=== PATIENT | female | born 1990 | race Hispanic/Latino ===

== ENCOUNTER 2022-10-05 02:19 | Emergency (ER) | payer OTHER ==
--- OUTSIDE RECORDS SUMMARY | 2022-10-05 02:25 | XMS REPORT | Continuity of Care Document ---
:1990 Author Organization [facility] t Address [address] [address] [place] [address] Care Team Providers Name Role Phone Salvador Joseph Attending Clinician Unavailable DANIEL Attending Clinician Unavailable Mehdi DIETRICH, Halle Garcia Attending Clinician Unavailable Jordan JOSÉPAmanda Attending Clinician [phone] Vivek DIETRICH, Sarah Roman Attending Clinician Unavailable Doctor Unassigned, [place] Attending Clinician Unavailable Jonnie RUSH, Ciera Baez Attending Clinician Giuliano BROWN, Yahir Parada Attending Clinician Faculty, [facility] Attending Clinician Unavailable Dav BROWN, Gris Gurrola Attending Clinician Allison Whitaker MD Attending Clinician Mali Sanchez MD Attending Clinician DANIEL Admitting Clinician Unavailable Giuliano BROWN, Yahir Parada Admitting Clinician Payers Payer Name Policy Type Policy Number Effective Date Expiration Date [facility] [id number] CHOICE (MEDICAID REPLACEMENT - HMO) Problems Condition Condition Condition Status Onset Resolution Last Treating Co mments Source Name Details Category Date Date Treatment Clinician Date Anxiety Anxiety Problem Active [place] [facility] Chronic Chronic Problem Active [place] depression Depression 4-11 da [facility] 36 weeks 36 weeks Disease Active Unive rs gestation gestation 8-13 ity of of of 00:00: [place] 00 [facility] Branch 17 weeks 17 weeks Disease Active Unive rs gestation gestation 4-02 ity of of of 00:00: [place] 00 [facility] Nausea and Nausea and Disease Active U nivers vomiting vomiting 2-19 ity of during during 00:00: [place] 00 [facility] History of History of Disease Active U nivers 2-15 [place] premature premature [place] rupture of rupture of 00 Me dical membranes membranes Bran ch (PPROM) (PPROM) Abnormal Abnormal Disease Active Unive rs maternal maternal 1-18 ity of glucose glucose 00:00: [place] tolerance, tolerance, 00 Me dical antepartum antepartum Br anch Previous Previous Disease Active Unive rs 1-17 ity of delivery delivery 00:00: [place] affecting affecting 00 [facility] , , Br anch antepartum antepartum Desires Desires Disease Active Univers 1-17 ity of (vaginal (vaginal 00:00: [place] 00 Medical after after Branch ) ) trial trial Depression Depression Disease Active U nivers , , 5-04 ity of unspecifie [place] Medical depression depression Br anch type type [id number] Unable to Problem Comm on concentrat Spirit e - [facility] Attention ADD Problem Common deficit (attention Spiri t disorder deficit - [facility] disorder) [facility] [id number] Attention Problem Comm on deficit Spirit hyperactiv - [facility] ity [facility] disorder [facility] (ADHD), Medical combined Center type [id number] BOO Problem Common (generaliz Spirit ed anxiety - [facility] disorder) [facility] [id number] Current Problem Common moderate Spirit episode of - [facility] depressive [facility] disorder Medical without Center prior episode [id number] Primary Problem Common insomnia Spirit - [facility] [id number] Hypertrigl Problem Co mmon yceridemia [facility] Allergies, Adverse Reactions, Alerts This patient has no known allergies or adverse reactions. Social History Social Habit Start Date Stop Date Quantity Comments Source ASSERTION 2018-03-20 [facility] 00:00:00 [facility] History of Tobacco Common Spirit - Use [facility] Sex Assigned At Common Sp sumaya - [facility] Alcohol intake [facility] Alcohol Comment 2016-11-09 2016-11-09 Social Drinker Unive rsity of 00:00:00 00:00:00 [facility] Smoking Status Start Date Stop Date Source Never Smoker Common Spirit - [facility] Former smoker 2018-12-20 00:00:00 2018-12-20 00:00:00 [facility] Medications Ordered Filled Start Stop Current Ordering Indication Dosage Frequency Signature Comments Components Source Medication Medication Date Date Medication? Clinician (SIG) Name Name Mydayis 50 Mydayis 50 No 1{capsu QD Mydayis 50 MG MG 5-05 le_in_t MG 00:00: he_morn 00 ing} Mydayis 50 Mydayis 50 No 1{capsu QD Mydayis 50 MG MG 3-27 le_in_t MG 00:00: he_morn 00 ing} Mydayis 50 Mydayis 50 No 1{capsu QD Mydayis 50 MG MG 2-13 le_in_t MG 00:00: he_morn 00 ing} Mydayis 50 Mydayis 50 2021-04 No 1{capsu QD Mydayis 50 MG MG 2-29 le_in_t MG 00:00: he_morn 00 ing} Mydayis 50 Mydayis 50 2021-04 No 1{capsu QD Mydayis 50 MG MG 2-28 le_in_t MG 00:00: he_morn 00 ing} Mydayis 50 Mydayis 50 2021-04 No 1{capsu QD Mydayis 50 MG MG 1-29 le_in_t MG 00:00: he_morn 00 ing} Mydayis 50 Mydayis 50 2021-04 No 1{capsu QD Mydayis 50 MG MG 1-29 le_in_t MG 00:00: he_morn 00 ing} Mydayis Mydayis 2021-04 No 1{capsu QD Mydayis 37.5 MG 37.5 MG 1-23 le_in_t 37.5 MG 00:00: he_morn 00 ing} Mydayis Mydayis 2021-04 No 1{capsu QD Mydayis 37.5 MG 37.5 MG 1-23 le_in_t 37.5 MG 00:00: he_morn 00 ing} Mydayis Mydayis 2021-04 No 1{capsu QD Mydayis 37.5 MG 37.5 MG 0-24 le_in_t 37.5 MG 00:00: he_morn 00 ing} Mydayis Mydayis 2021-04 No 1{capsu QD Mydayis 37.5 MG 37.5 MG 0-24 le_in_t 37.5 MG 00:00: he_morn 00 ing} Mydayis Mydayis No 1{capsu QD Mydayis 37.5 MG 37.5 MG 9 le_in_t 37.5 MG 00:00: he_morn 00 ing} Mydayis Mydayis No 1{capsu QD Mydayis 37.5 MG 37.5 MG 9 le_in_t 37.5 MG 00:00: he_morn 00 ing} Mydayis 25 Mydayis No 1{capsu QD Mydayis 25 MG MG 8-19 le_in_t MG 00:00: he_morn 00 ing} Mydayis 25 Mydayis No 1{capsu QD Mydayis 25 MG MG 8-19 le_in_t MG 00:00: he_morn 00 ing} Mydayis 25 Mydayis No 1{capsu QD Mydayis 25 MG MG 8-19 le_in_t MG 00:00: he_morn 00 ing} Mydayis 25 Mydayis No 1{capsu QD Mydayis 25 MG MG 8-19 le_in_t MG 00:00: he_morn 00 ing} Mydayis 25 Mydayis 25 No 1{capsu QD Mydayis 25 MG MG 8-19 le_in_t MG 00:00: he_morn 00 ing} Vyvanse 40 Vyvanse 40 2021-0 No 1{capsu QD Vyvanse 40 MG MG 8-08 le_in_t MG 00:00: he_morn 00 ing} Vyvanse 40 Vyvanse 40 2021-0 No 1{capsu QD Vyvanse 40 MG MG 8-08 le_in_t MG 00:00: he_morn 00 ing} Amphetamine Amphetamine 2021-0 No 1{table BID Amphetamin -Dextroamph -Dextroamph 7-15 t} e-Dextroam etamine 20 etamine 20 00:00: phetamine MG MG 00 20 MG Amphetamine Amphetamine 2021-0 No 1{table BID Amphetamin -Dextroamph -Dextroamph 7-15 t} e-Dextroam etamine 20 etamine 20 00:00: phetamine MG MG 00 20 MG Amphetamine Amphetamine 2021-0 No 1{table BID Amphetamin -Dextroamph -Dextroamph 6-17 t} e-Dextroam etamine 20 etamine 20 00:00: phetamine MG MG 00 20 MG Adderall 20 Adderall 20 2021-0 No 1{table BID Adderall MG MG 6-17 t} 20 MG 00:00: 00 Amphetamine Amphetamine 2021-0 No 1{table BID Amphetamin -Dextroamph -Dextroamph 6-17 t} e-Dextroam etamine 20 etamine 20 00:00: phetamine MG MG 00 20 MG Adderall 20 Adderall 20 2-0 No 1{table BID Adderall MG MG 6-17 t} 20 MG 00:00: 00 Adderall 20 Adderall 20 2-0 No 1{table BID Adderall MG MG 6-17 t} 20 MG 00:00: 00 Adderall 20 Adderall 20 2-0 No 1{table BID Adderall MG MG 6-17 t} 20 MG 00:00: 00 Amphetamine Amphetamine 2021-0 No 1{table BID Amphetamin -Dextroamph -Dextroamph 5-20 t} e-Dextroam etamine 20 etamine 20 00:00: phetamine MG MG 00 20 MG Amphetamine Amphetamine 2-0 No 1{table BID Amphetamin -Dextroamph -Dextroamph 5-20 t} e-Dextroam etamine 20 etamine 20 00:00: phetamine MG MG 00 20 MG Amphetamine Amphetamine 2022-0 No 1{table BID Amphetamin -Dextroamph -Dextroamph 5-20 t} e-Dextroam etamine 20 etamine 20 00:00: phetamine MG MG 00 20 MG Amitriptyli Amitriptyli 2021-0 No 1{table QD Amitriptyl ne HCl 25 ne HCl 25 4-21 t_at_be ine HCl 25 MG MG 00:00: dtime} MG 00 Amphetamine Amphetamine 2022-0 No 1{table BID Amphetamin -Dextroamph -Dextroamph 4-21 t} e-Dextroam etamine 10 etamine 10 00:00: phetamine MG MG 00 10 MG Amitriptyli Amitriptyli 2021-0 No 1{table QD Amitriptyl ne HCl 25 ne HCl 25 4-21 t_at_be ine HCl 25 MG MG 00:00: dtime} MG 00 Amphetamine Amphetamine 2-0 No 1{table BID Amphetamin -Dextroamph -Dextroamph 4-21 t} e-Dextroam etamine 10 etamine 10 00:00: phetamine MG MG 00 10 MG Amitriptyli Amitriptyli 2021-0 No 1{table QD Amitriptyl ne HCl 25 ne HCl 25 4-21 t_at_be ine HCl 25 MG MG 00:00: dtime} MG 00 Amphetamine Amphetamine 2-0 No 1{table BID Amphetamin -Dextroamph -Dextroamph 4-21 t} e-Dextroam etamine 10 etamine 10 00:00: phetamine MG MG 00 10 MG Amoxicillin Amoxicillin 2021-0 2022- No 1{table BID Amoxicilli -Pot -Pot 4-18 04-28 t} n-Pot Clavulanate Clavulanate 00:00: 00:00 Clavulanat 875-125 MG 875-125 MG 00 :00 e 875-125 MG Amoxicillin Amoxicillin 2-0 2022- No 1{table BID Amoxicilli -Pot -Pot 4-18 04-28 t} n-Pot Clavulanate Clavulanate 00:00: 00:00 Clavulanat 875-125 MG 875-125 MG 00 :00 e 875-125 MG Amoxicillin Amoxicillin 2021-0 2021- No 1{table BID Amoxicilli -Pot -Pot 07-25 t} n-Pot Clavulanate Clavulanate 00:00: 00:00 Clavulanat 875-125 MG 875-125 MG 00 :00 e 875-125 MG Amoxicillin Amoxicillin 2021-0 2021- No 1{table BID Amoxicilli -Pot -Pot 07-25 t} n-Pot Clavulanate Clavulanate 00:00: 00:00 Clavulanat 875-125 MG 875-125 MG 00 :00 e 875-125 MG Amoxicillin Amoxicillin 2021-0 2021- No 1{table BID Amoxicilli -Pot -Pot 07-25 t} n-Pot Clavulanate Clavulanate 00:00: 00:00 Clavulanat 875-125 MG 875-125 MG 00 :00 e 875-125 MG Amoxicillin Amoxicillin 2021-0 2021- No 1{table BID Amoxicilli -Pot -Pot 07-25 t} n-Pot Clavulanate Clavulanate 00:00: 00:00 Clavulanat 875-125 MG 875-125 MG 00 :00 e 875-125 MG Amoxicillin Amoxicillin 2021-0 2021- No 1{table BID Amoxicilli -Pot -Pot 07-25 t} n-Pot Clavulanate Clavulanate 00:00: 00:00 Clavulanat 875-125 MG 875-125 MG 00 :00 e 875-125 MG methylPREDN methylPREDN 0 2021- No QD methylPRED ISolone 4 ISolone 4 07-25 NISolone 4 MG MG 00:00: 00:00 MG 00 :00 methylPREDN methylPREDN 2021-0 2021- No QD methylPRED ISolone 4 ISolone 4 07-25 NISolone 4 MG MG 00:00: 00:00 MG 00 :00 methylPREDN methylPREDN 2021-0 2021- No QD methylPRED ISolone 4 ISolone 4 07-25 NISolone 4 MG MG 00:00: 00:00 MG 00 :00 methylPREDN methylPREDN 2021-0 2021- No QD methylPRED ISolone 4 ISolone 4 07-25-24 NISolone 4 MG MG 00:00: 00:00 MG 00 :00 methylPREDN methylPREDN 2021-0 2021- No QD methylPRED ISolone 4 ISolone 4 4-24 NISolone 4 MG MG 00:00: 00:00 MG 00 :00 methylPREDN methylPREDN 2021-0 2021- No QD methylPRED ISolone 4 ISolone 4 4-24 NISolone 4 MG MG 00:00: 00:00 MG 00 :00 methylPREDN methylPREDN 2021-0 2021- No QD methylPRED ISolone 4 ISolone 4 07-25 NISolone 4 MG MG 00:00: 00:00 MG 00 :00 escitalopra Yes [id number] 20mg Take 1 Univers m oxalate 9-12 tablet by ity o f (LEXAPRO) 00:00: mouth [place] 20 mg 00 daily. Medical tablet Branch escitalopra Yes [id number] 20mg Take 1 Univers m oxalate 9-12 tablet by ity o f (LEXAPRO) 00:00: mouth [place] 20 mg 00 daily. Medical tablet Branch escitalopra Yes [id number] 10mg Take 1 Univers m oxalate 9-05 tablet by ity o f (LEXAPRO) 00:00: mouth [place] 10 mg 00 daily. Medical tablet Branch escitalopra Yes [id number] 10mg Take 1 Univers m oxalate 9-05 tablet by ity o f (LEXAPRO) 00:00: mouth [place] 10 mg 00 daily. Medical tablet Branch escitalopra 2019- No [id number] 10mg Take 1 Univers m oxalate 9-05 09-12 tablet by ity of (LEXAPRO) 00:00: 00:00 mouth [place] 10 mg 00 :00 daily. Medical tablet Branch ibuprofen Yes [id number] 600mg Take 1 Univers 600 mg 8-23 tablet by ity of tablet 00:00: mouth [place] 00 every 6 Medical (six) Branch hours as needed for Pain (scale 1-3) or Pain (scale 4-6) (Pain). Take with food or milk. ibuprofen Yes [id number] 600mg Take 1 Univers 600 mg 8-23 tablet by ity of tablet 00:00: mouth [place] 00 every 6 Medical (six) Branch hours as needed for Pain (scale 1-3) or Pain (scale 4-6) (Pain). Take with food or milk. ibuprofen Yes [id number] 600mg Take 1 Univers 600 mg 8-23 tablet by ity of tablet 00:00: mouth [place] 00 every 6 Medical (six) Branch hours as needed for Pain (scale 1-3) or Pain (scale 4-6) (Pain). Take with food or milk. ibuprofen Yes [id number] 600mg Take 1 Univers 600 mg 8-23 tablet by ity of tablet 00:00: mouth [place] 00 every 6 Medical (six) Branch hours as needed for Pain (scale 1-3) or Pain (scale 4-6) (Pain). Take with food or milk. ibuprofen Yes [id number] 600mg Take 1 Univers 600 mg 8-23 tablet by ity of tablet 00:00: mouth [place] 00 every 6 Medical (six) Branch hours as needed for Pain (scale 1-3) or Pain (scale 4-6) (Pain). Take with food or milk. ibuprofen Yes [id number] 600mg Take 1 Univers 600 mg 8-23 tablet by ity of tablet 00:00: mouth [place] 00 every 6 Medical (six) Branch hours as needed for Pain (scale 1-3) or Pain (scale 4-6) (Pain). Take with food or milk. bacitracin 2019- No 1{each} Topical Univers 500 unit/g 11-21 (Apply To ity of ointment 04:30: 00:59 [place]ffected [place] pkt 00 :00 Areas), Medical QID, 4 Branch doses, First dose on Sun11/20/18 at 2330, Last dose on Sun11/21/18 at 1600, Routine human 2018- Yes .5mL 0.5 mL, Univers papillomav 11-20 Intramuscu ity of vac,9-cherie(P 11:32: lar, [place] F) 48 ONCE-PRIOR Medical (GARDASIL 9 TO Branch (PF)) vial DISCHARGE, 0.5 mL 1 dose, Starting Sun11/20/18 at 0632, Until Discontinu ed, Routine, Give vaccine prior to discharge ibuprofen 2019-0 Yes 600mg 600 mg, Univ ers (IBU) 11-20 Oral, ity of tablet 600 10:52: Q6HPRN, [place] mg 20 Starting Medical [facility] 11/20/18 at 0552, Until Discontinu ed, Routine, Pain (scale 1-3), Pain (scale 4-6) ketorolac 2018-0 2019- No 30mg 30 mg, Unive rs (TORADOL) 11-20 Slow IV ity of injection 01:30: 00:31 Push, [place] 30 mg 00 :00 ONCE, 1 Medical dose, [facility] 11/19/18 at 2030, Routine
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 Restricted medication : TOBI SANTIAGO HYDROcodone 2018-0 Yes 1{tbl} [Order 1 Univers -acetaminop 11-20 Start] ity of hen (NORCO 00:25: Name: [place] 5) 5-325 mg 42 HYDROcodon Me dical tablet 1 e-acetamin Branc h tablet ophen (NORCO 5) 5-325 mg tablet 1 tablet Signed Summary: 1 tablet, Oral, Q6HPRN, Starting [facility] 11/19/18 at 1925, Until Discontinu ed, Routine, Pain (scale 7-10) [Order 1 End] [Order 2 Start] Name: HYDROcodon e-acetamin ophen (NORCO 5) 5-325 mg tablet 2 tablet Signed Summary: 2 tablet, Oral, Q6HPRN, Starting [facility] 11/19/18 at 192, Until Discontinu ed, Routine, Pain (scale 7-10) [Order 2 End] diphenhydrA 2019-0 Yes 25mg 25 mg, Univ ers MINE 11-20 Oral, ity of (BENADRYL) 00:21: Q6HPRN, [place] tablet 25 10 Starting Medica l mg [facility] 11/19/18 at 192, Until Discontinu ed, Routine, Sleep, Itching ondansetron 2018-0 Yes 4mg 4 mg, Slow Univers (ZOFRAN 11-20 IV Push, ity of (PF)) 00:21: Q8HPRN, [place] injection 4 10 Starting Medi kwadwo mg [facility] 11/19/18 at 1921, Until Discontinu ed, Routine, Nausea and Vomiting (N/V) simethicone Yes 160mg 160 mg, Un mauricio (GAS 8-14 Oral, ity of RELIEF) 00:21: PC+HSPRN, [place] chewable 10 Starting Medical tablet 160 Tue Branch mg 11/19/18 at 1921, Until Discontinu ed, Routine, Gas docusate Yes 240mg 240 mg, Unive rs calcium 8-14 Oral, ity of (SURFAK) 00:21: QDAILYPRN, [place] capsule 240 10 Starting Medi kwadwo mg Tue Branch 11/19/18 at 1921, Until Discontinu ed, Routine, Constipati on magnesium Yes 30mL 30 mL, Univer s hydroxide 8-14 Oral, ity of (MILK OF 00:21: QDAILYPRN, [place] MAGNESIA) 10 Starting Medica l 400 mg/5 mL [facility] Branch suspension 11/19/18 at 30 mL 1920, Until Discontinu ed, Routine, Constipati on bisacodyl Yes 10mg 10 mg, Univer s (DULCOLAX) 8-14 Rectal, ity of suppository 00:21: QDAIYPRSasha, [place] 10 mg 09 Starting Medical e Branch 11/19/18 at 192, Until Discontinu ed, Routine, Constipati on Yes [id number] 1{tbl} Take 1 Univers vitamin 8-14 tablet by ity of w/FA tablet 00:00: mouth [place] 00 daily. Medical Branch docusate Yes [id number] 240mg Take 1 U nivers calcium 240 8-14 capsule by it y of mg capsule 00:00: mouth [place] 00 daily as Medical needed for Branch Constipati on. ferrous Yes [id number] 325mg Take 1 Un mauricio sulfate 325 8-14 tablet by ity of mg (65 mg 00:00: mouth 2 [place] iron) 00 (two) Medical tablet times Branch daily. ibuprofen Yes [id number] 600mg Take 1 Univers 600 mg 8-14 tablet by ity of tablet 00:00: mouth [place] 00 every 6 Medical (six) Branch hours as needed for Pain (scale 1-3) or Pain (scale 4-6) (Pain). Take with food or milk. HYDROcodone Yes [id number] 1{tbl} Take 1 Univers -acetaminop 8-14 tablet by ity of hen 5-325 00:00: mouth [place] mg tablet 00 every 6 Medical (six) Branch hours as needed for Pain (scale 7-10). simethicone Yes [id number] 160mg Take 2 Univers 80 mg 8-14 tablets by ity of chewable 00:00: mouth [place] tablet 00 after Medical meals and Branch at bedtime as needed for Gas. Yes [id number] 1{tbl} Take 1 Univers vitamin 8-14 tablet by ity of w/FA tablet 00:00: mouth [place] 00 daily. Medical Branch docusate Yes [id number] 240mg Take 1 U nivers calcium 240 8-14 capsule by it y of mg capsule 00:00: mouth once [place] 00 daily as Medical needed for Branch Constipati on. ferrous Yes [id number] 325mg Take 1 Un mauricio sulfate 325 8-14 tablet by ity of mg (65 mg 00:00: mouth 2 [place] iron) 00 (two) Medical tablet times Branch daily. ibuprofen Yes [id number] 600mg Take 1 Univers 600 mg 8-14 tablet by ity of tablet 00:00: mouth [place] 00 every 6 Medical (six) Branch hours as needed for Pain (scale 1-3) or Pain (scale 4-6) (Pain). Take with food or milk. HYDROcodone Yes [id number] 1{tbl} Take 1 Univers -acetaminop 8-14 tablet by ity of hen 5-325 00:00: mouth [place] mg tablet 00 every 6 Medical (six) Branch hours as needed for Pain (scale 7-10). simethicone Yes [id number] 160mg Take 2 Univers 80 mg 8-14 tablets by ity of chewable 00:00: mouth [place] tablet 00 after Medical meals and Branch at bedtime as needed for Gas. Yes [id number] 1{tbl} Take 1 Univers vitamin 8-14 tablet by ity of w/FA tablet 00:00: mouth [place] 00 daily. Medical Branch docusate Yes [id number] 240mg Take 1 U nivers calcium 240 8-14 capsule by it y of mg capsule 00:00: mouth once [place] 00 daily as Medical needed for Branch Constipati on. ferrous Yes [id number] 325mg Take 1 Un mauricio sulfate 325 8-14 tablet by ity of mg (65 mg 00:00: mouth 2 [place] iron) 00 (two) Medical tablet times Branch daily. HYDROcodone Yes [id number] 1{tbl} Take 1 Univers -acetaminop 8-14 tablet by ity of hen 5-325 00:00: mouth [place] mg tablet 00 every 6 Medical (six) Branch hours as needed for Pain (scale 7-10). simethicone Yes [id number] 160mg Take 2 Univers 80 mg 8-14 tablets by ity of chewable 00:00: mouth [place] tablet 00 after Medical meals and Branch at bedtime as needed for Gas. Yes [id number] 1{tbl} Take 1 Univers vitamin 8-14 tablet by ity of w/FA tablet 00:00: mouth [place] 00 daily. Medical Branch docusate Yes [id number] 240mg Take 1 U nivers calcium 240 8-14 capsule by it y of mg capsule 00:00: mouth once [place] 00 daily as Medical needed for Branch Constipati on. ferrous Yes [id number] 325mg Take 1 Un mauricio sulfate 325 8-14 tablet by ity of mg (65 mg 00:00: mouth 2 [place] iron) 00 (two) Medical tablet times Branch daily. HYDROcodone Yes [id number] 1{tbl} Take 1 Univers -acetaminop 8-14 tablet by ity of hen 5-325 00:00: mouth [place] mg tablet 00 every 6 Medical (six) Branch hours as needed for Pain (scale 7-10). simethicone Yes [id number] 160mg Take 2 Univers 80 mg 8-14 tablets by ity of chewable 00:00: mouth [place] tablet 00 after Medical meals and Branch at bedtime as needed for Gas. Yes [id number] 1{tbl} Take 1 Univers vitamin 8-14 tablet by ity of w/FA tablet 00:00: mouth [place] 00 daily. Medical Branch docusate Yes [id number] 240mg Take 1 U nivers calcium 240 8-14 capsule by it y of mg capsule 00:00: mouth once [place] 00 daily as Medical needed for Branch Constipati on. ferrous 2019 Yes [id number] 325mg Take 1 Un mauricio sulfate 325 8-14 tablet by ity of mg (65 mg 00:00: mouth 2 [place] iron) 00 (two) Medical tablet times Branch daily. HYDROcodone Yes [id number] 1{tbl} Take 1 Univers -acetaminop 8-14 tablet by ity of hen 5-325 00:00: mouth [place] mg tablet 00 every 6 Medical (six) Branch hours as needed for Pain (scale 7-10). simethicone Yes [id number] 160mg Take 2 Univers 80 mg 8-14 tablets by ity of chewable 00:00: mouth [place] tablet 00 after Medical meals and Branch at bedtime as needed for Gas. Yes [id number] 1{tbl} Take 1 Univers vitamin 8-14 tablet by ity of w/FA tablet 00:00: mouth [place] 00 daily. Medical Branch docusate Yes [id number] 240mg Take 1 U nivers calcium 240 8-14 capsule by it y of mg capsule 00:00: mouth once [place] 00 daily as Medical needed for Branch Constipati on. ferrous Yes [id number] 325mg Take 1 Un mauricio sulfate 325 8-14 tablet by ity of mg (65 mg 00:00: mouth 2 [place] iron) 00 (two) Medical tablet times Branch daily. HYDROcodone Yes [id number] 1{tbl} Take 1 Univers -acetaminop 8-14 tablet by ity of hen 5-325 00:00: mouth [place] mg tablet 00 every 6 Medical (six) Branch hours as needed for Pain (scale 7-10). simethicone Yes [id number] 160mg Take 2 Univers 80 mg 8-14 tablets by ity of chewable 00:00: mouth [place] tablet 00 after Medical meals and Branch at bedtime as needed for Gas. Yes [id number] 1{tbl} Take 1 Univers vitamin 8-14 tablet by ity of w/FA tablet 00:00: mouth [place] 00 daily. Medical Branch docusate Yes [id number] 240mg Take 1 U nivers calcium 240 8-14 capsule by it y of mg capsule 00:00: mouth once [place] 00 daily as Medical needed for Branch Constipati on. ferrous 2019 Yes [id number] 325mg Take 1 Un mauricio sulfate 325 8-14 tablet by ity of mg (65 mg 00:00: mouth 2 [place] iron) 00 (two) Medical tablet times Branch daily. HYDROcodone Yes [id number] 1{tbl} Take 1 Univers -acetaminop 8-14 tablet by ity of hen 5-325 00:00: mouth [place] mg tablet 00 every 6 Medical (six) Branch hours as needed for Pain (scale 7-10). simethicone Yes [id number] 160mg Take 2 Univers 80 mg 8-14 tablets by ity of chewable 00:00: mouth [place] tablet 00 after Medical meals and Branch at bedtime as needed for Gas. Yes [id number] 1{tbl} Take 1 Univers vitamin 8-14 tablet by ity of w/FA tablet 00:00: mouth [place] 00 daily. Medical Branch docusate Yes [id number] 240mg Take 1 U nivers calcium 240 8-14 capsule by it y of mg capsule 00:00: mouth once [place] 00 daily as Medical needed for Branch Constipati on. ferrous Yes [id number] 325mg Take 1 Un mauricio sulfate 325 8-14 tablet by ity of mg (65 mg 00:00: mouth 2 [place] iron) 00 (two) Medical tablet times Branch daily. HYDROcodone Yes [id number] 1{tbl} Take 1 Univers -acetaminop 8-14 tablet by ity of hen 5-325 00:00: mouth [place] mg tablet 00 every 6 Medical (six) Branch hours as needed for Pain (scale 7-10). simethicone Yes [id number] 160mg Take 2 Univers 80 mg 8-14 tablets by ity of chewable 00:00: mouth [place] tablet 00 after Medical meals and Branch at bedtime as needed for Gas. Yes [id number] 1{tbl} Take 1 Univers vitamin 8-14 tablet by ity of w/FA tablet 00:00: mouth [place] 00 daily. Medical Branch docusate Yes [id number] 240mg Take 1 U nivers calcium 240 8-14 capsule by it y of mg capsule 00:00: mouth once [place] 00 daily as Medical needed for Branch Constipati on. ferrous 2019- Yes [id number] 325mg Take 1 Un mauricio sulfate 325 8-14 tablet by ity of mg (65 mg 00:00: mouth 2 [place] iron) 00 (two) Medical tablet times Branch daily. HYDROcodone 2019- Yes [id number] 1{tbl} Take 1 Univers -acetaminop 8-14 tablet by ity of hen 5-325 00:00: mouth [place] mg tablet 00 every 6 Medical (six) Branch hours as needed for Pain (scale 7-10). simethicone 2019- Yes [id number] 160mg Take 2 Univers 80 mg 8-14 tablets by ity of chewable 00:00: mouth [place] tablet 00 after Medical meals and Branch at bedtime as needed for Gas. 2018- Yes [id number] 1{tbl} Take 1 Univers vitamin 8-14 tablet by ity of w/FA tablet 00:00: mouth [place] 00 daily. Medical Branch docusate 2018- Yes [id number] 240mg Take 1 U nivers calcium 240 8-14 capsule by it y of mg capsule 00:00: mouth once [place] 00 daily as Medical needed for Branch Constipati on. ferrous 2018- Yes [id number] 325mg Take 1 Un [facility] sulfate 325 8-14 tablet by ity of mg (65 mg 00:00: mouth 2 [place] iron) 00 (two) Medical tablet times Branch daily. HYDROcodone 2018- Yes [id number] 1{tbl} Take 1 [facility] -acetaminop 8-14 tablet by ity of hen 5-325 00:00: mouth [place] mg tablet 00 every 6 Medical (six) Branch hours as needed for Pain (scale 7-10). simethicone 2019 Yes [id number] 160mg Take 2 [facility] 80 mg 8-14 tablets by ity of chewable 00:00: mouth [place] tablet 00 after Medical meals and Branch at bedtime as needed for Gas. ibuprofen 2019- No [id number] 600mg Take 1 [facility] 600 mg 8-14 08-23 tablet by ity of tablet 00:00: 00:00 mouth [place] 00 :00 every 6 Medical (six) Branch hours as needed for Pain (scale 1-3) or Pain (scale 4-6) (Pain). Take with food or milk. nalbuphine 2019-0 Yes 5mg 5 mg, Univer s (NUBAIN) 11-19 Intravenou ity o f injection 5 23:39: s, PRN, 1 [place] mg 22 dose, Medical Starting Branch Sun11/19/18 at 1839, Until Discontinu ed, Routine, Itching, PACU naloxone 2019- No .4mg 0.4 mg, Unive rs (NARCAN) 11-19 Slow IV ity of injection 23:39: 23:38 Push, PRN [place] 0.4 mg 22 :22 - SEE Medical INSTRUCTIO Branch NS, Starting Sun11/19/18 at 183, Until Shanel 11/21/18 at 1838, Routine, Analgesia Recovery, PACU LR 1000 mL 2019- No at 125 Univ ers + oxytocin 11-19 mL/hr, IV ity of 20 units IV 22:15: 00:21 Infusion, [place] Solution 00 :15 CONTINUOUS Medic al , Starting Branch Sun11/19/18 at 1715, Until Sun11/19/18 at 1921, TAILA ceFAZolin 2019- No 2000mg 2 g (2,000 [facility] in dextrose 11-19 mg), IV ity of (iso-os) 21:22: 21:56 Piggyback, [place] (ANCEF) 2 52 :00 O.R. Medical gram/100 mL HOLDING Branc h Piggyback 2 ONCE, 1 g dose, Starting Sun11/19/18 at 1622, Until Sun11/19/18 at 1656, 100 mL
Reas on for Anti-Infec tive: Surgical Prophylaxi s
Surgi kwadwo Prophylaxi s: SOAP CHIPPER
Duration of therapy: within 24 hours of surgery sodium 2019- No 30mL 30 mL, [facility] citrate-cit 11-19 Oral, ity of camacho acid 21:22: 21:56 PRE-PROCED [place] (BICITRA) 52 :00 URE ONCE, Medic al [id number] 1 dose, Branch mg/5 mL Starting solution 30 Tue mL 11/19/18 at 1622, Until 11/19/18 at 1656, Routine, Surgery/Pr ocedure famotidine Yes [id number] 20mg Take 1 U nivers 20 mg 7-30 tablet by ity of tablet 00:00: mouth 2 [place] 00 (two) Medical times Branch daily. famotidine Yes [id number] 20mg Take 1 U nivers 20 mg 7-30 tablet by ity of tablet 00:00: mouth 2 [place] 00 (two) Medical times Branch daily. escitalopra Yes [id number] 10mg Take 2 Univers m oxalate 7-16 tablets by ity of (LEXAPRO) 5 00:00: mouth [place] mg tablet 00 daily. [facility] escitalopra Yes [id number] 10mg Take 2 [facility] m oxalate 7-16 tablets by ity of (LEXAPRO) 5 00:00: mouth [place] mg tablet 00 daily. [facility] escitalopra Yes [id number] 10mg Take 2 Univers m oxalate 7-16 tablets by ity of (LEXAPRO) 5 00:00: mouth [place] mg tablet 00 daily. [facility] escitalopra Yes [id number] 10mg Take 2 [facility] m oxalate 7-16 tablets by ity of (LEXAPRO) 5 00:00: mouth [place] mg tablet 00 daily. [facility] escitalopra Yes [id number] 10mg Take 2 Univers m oxalate 7-16 tablets by ity of (LEXAPRO) 5 00:00: mouth [place] mg tablet 00 daily. [facility] escitalopra Yes [id number] 10mg Take 2 [facility] m oxalate 7-16 tablets by ity of (LEXAPRO) 5 00:00: mouth [place] mg tablet 00 daily. [facility] escitalopra Yes [id number] 10mg Take 2 Univers m oxalate 7-16 tablets by ity of (LEXAPRO) 5 00:00: mouth [place] mg tablet 00 daily. [facility] escitalopra Yes [id number] 10mg Take 2 Univers m oxalate 7-16 tablets by ity of (LEXAPRO) 5 00:00: mouth [place] mg tablet 00 daily. [facility] escitalopra Yes [id number] 10mg Take 2 Univers m oxalate 7-16 tablets by ity of (LEXAPRO) 5 00:00: mouth [place] mg tablet 00 daily. Medical Branch escitalopra Yes [id number] 10mg Take 2 [facility] m oxalate 7-16 tablets by ity of (LEXAPRO) 5 00:00: mouth [place] mg tablet 00 daily. Medical Branch escitalopra 2019- No [id number] 10mg Take 2 [facility] m oxalate 7-16 09-05 tablets by ity of (LEXAPRO) 5 00:00: 00:00 mouth [place] mg tablet 00 :00 daily. Medical Branch FAMOTIDINE Yes [id number] TAKE 1 U nivers 20 mg 7-02 TABLET BY ity of tablet 00:00: MOUTH [place] 00 TWICE Medical DAILY Branch FAMOTIDINE Yes [id number] TAKE 1 U nivers 20 mg 7-02 TABLET BY ity of tablet 00:00: MOUTH [place] 00 TWICE Medical DAILY Branch FAMOTIDINE 2019- No [id number] TAKE 1 [facility] 20 mg 7-02 07-30 TABLET BY ity of tablet 00:00: 00:00 MOUTH [place] 00 :00 TWICE Medical DAILY Branch FAMOTIDINE 2019- No [id number] TAKE 1 [facility] 20 mg 7-02 07-30 TABLET BY ity of tablet 00:00: 00:00 MOUTH [place] 00 :00 TWICE Medical DAILY Branch hydroxyprog Yes [id number] 250mg Univers est(PF)(pre 3-27 ity of g presv) 14:00: [place] (DIANA) 00 Medical 250 mg/mL Branch (1 mL) injection 250 mg hydroxyprog Yes [id number] 250mg Univers est(PF)(pre 3-27 ity of g presv) 14:00: (DIANA) 00 Medical 250 mg/mL Branch (1 mL) injection 250 mg hydroxyprog 2019- Yes [id number] 250mg [facility] est(PF)(pre 3-27 ity of g presv) 14:00: [place] (DIANA) 00 Medical 250 mg/mL Branch (1 mL) injection 250 mg hydroxyprog 2019- Yes [id number] 250mg [facility] est(PF)(pre 3-27 ity of g presv) 14:00: [place] (DIANA) 00 Medical 250 mg/mL Branch (1 mL) injection 250 mg hydroxyprog 2019-0 Yes [id number] 250mg [facility] est(PF)(pre 3-27 ity of g presv) 14:00: [place] (DIANA) 00 Medical 250 mg/mL Branch (1 mL) injection 250 mg hydroxyprog 2018-0 Yes [id number] 250mg [facility] est(PF)(pre 3-27 ity of g presv) 14:00: [place] (DIANA) 00 Medical 250 mg/mL Branch (1 mL) injection 250 mg hydroxyprog 2019- No [id number] 250mg [facility] est(PF)(pre 327 08-14 ity of g presv) 14:00: 12:24 [place] (DIANA) 00 :34 Medical 250 mg/mL Branch (1 mL) injection 250 mg hydroxyprog 0 Yes Univer s est,PF,,pre 3-13 ity of g presv, 00:00: [place] 250 mg/mL 00 Medical (1 mL) Branch injection hydroxyprog 0 Yes Univer s est,PF,,pre 3-13 ity of g presv, 00:00: [place] 250 mg/mL 00 Medical (1 mL) Branch injection hydroxyprog 0 Yes Univer s est,PF,,pre 3-13 ity of g presv, 00:00: [place] 250 mg/mL 00 Medical (1 mL) Branch injection hydroxyprog 0 Yes Univer s est,PF,,pre 3-13 ity of g presv, 00:00: [place] 250 mg/mL 00 Medical (1 mL) Branch injection hydroxyprog 0 Yes Univer s est,PF,,pre 3-13 ity of g presv, 00:00: [place] 250 mg/mL 00 Medical (1 mL) Branch injection hydroxyprog 0 2019- No Unive rs est,PF,,pre 3-13 08-13 ity of g presv, 00:00: 00:00 [place] 250 mg/mL 00 :00 Medical (1 mL) Branch injection hydroxyprog 0 2019- No Unive rs est,PF,,pre 3-13 08-13 ity of g presv, 00:00: 00:00 [place] 250 mg/mL 00 :00 Medical (1 mL) Branch injection doxylamine- Yes [id number] 1{tbl} Take 1 [facility] pyridoxine, 3-05 tablet by ity of vit B6, 00:00: mouth 4 [place] (DICLEGIS) 00 (four) Medical 10-10 mg times Branch per tablet daily. doxylamine- Yes [id number] 1{tbl} Take 1 [facility] pyridoxine, 3-05 tablet by ity of vit B6, 00:00: mouth 4 [place] (DICLEGIS) 00 (four) Medical 10-10 mg times Branch per tablet daily. doxylamine- Yes [id number] 1{tbl} Take 1 [facility] pyridoxine, 3-05 tablet by ity of vit B6, 00:00: mouth 4 [place] (DICLEGIS) 00 (four) Medical 10-10 mg times Branch per tablet daily. doxylamine Yes [id number] 1{tbl} Take 1 [facility] pyridoxine, 3-05 tablet by ity of vit B6, 00:00: mouth 4 [place] (DICLEGIS) 00 (four) Medical 10-10 mg times Branch per tablet daily. doxylamine- Yes [id number] 1{tbl} Take 1 [facility] pyridoxine, 3-05 tablet by ity of vit B6, 00:00: mouth 4 [place] (DICLEGIS) 00 (four) Medical 10-10 mg times Branch per tablet daily. doxylamine- Yes [id number] 1{tbl} Take 1 [facility] pyridoxine, 3-05 tablet by ity of vit B6, 00:00: mouth 4 [place] (DICLEGIS) 00 (four) Medical 10-10 mg times Branch per tablet daily. doxylamine 2019- No [id number] 1{tbl} Take 1 [facility] pyridoxine, 3-05 08-14 tablet by it y of vit B6, 00:00: 00:00 mouth 4 [place] (DICLEGIS) 00 :00 (four) Medical 10-10 mg times Branch per tablet daily. doxylamine- 2019- No [id number] 1{tbl} Take 1 [facility] pyridoxine, 3-05 08-14 tablet by it y of vit B6, 00:00: 00:00 mouth 4 [place] (DICLEGIS) 00 :00 (four) Medical 10-10 mg times Branch per tablet daily. Yes [id number] 1{packe Take 1 [facility] vit 2-14 t} Packet by ity of 33-iron-fol 00:00: mouth [place] ic-dha 00 daily. Medical (SELECT-OB Branch + DHA) 29 mg iron-1 mg -250 mg combo pack proMETHazin Yes [id number] 25mg Take 1 Univers e 25 mg 2-14 tablet by ity of tablet 00:00: mouth [place] 00 every 4 Medical (four) Branch hours as needed for Nausea and Vomiting (N/V). Yes [id number] 1{packe Take 1 [facility] vit 2-14 t} Packet by ity of 33-iron-fol 00:00: mouth [place] ic-dha 00 daily. Medical (SELECT-OB Branch + DHA) 29 mg iron-1 mg -250 mg combo pack proMETHazin Yes [id number] 25mg Take 1 [facility] e 25 mg 2-14 tablet by ity of tablet 00:00: mouth [place] 00 every 4 Medical (four) Branch hours as needed for Nausea and Vomiting (N/V). Yes [id number] 1{packe Take 1 [facility] vit 2-14 t} Packet by ity of 33-iron-fol 00:00: mouth [place] ic-dha 00 daily. Medical (SELECT-OB Branch + DHA) 29 mg iron-1 mg -250 mg combo pack proMETHazin Yes [id number] 25mg Take 1 [facility] e 25 mg 2-14 tablet by ity of tablet 00:00: mouth [place] 00 every 4 Medical (four) Branch hours as needed for Nausea and Vomiting (N/V). Yes [id number] 1{packe Take 1 [facility] vit 2-14 t} Packet by ity of 33-iron-fol 00:00: mouth [place] ic-dha 00 daily. Medical (SELECT-OB Branch + DHA) 29 mg iron-1 mg -250 mg combo pack proMETHazin Yes [id number] 25mg Take 1 Univers e 25 mg 2-14 tablet by ity of tablet 00:00: mouth [place] 00 every 4 Medical (four) Branch hours as needed for Nausea and Vomiting (N/V). Yes [id number] 1{packe Take 1 [facility] vit 2-14 t} Packet by ity of 33-iron-fol 00:00: mouth [place] ic-dha 00 daily. Medical (SELECT-OB Branch + DHA) 29 mg iron-1 mg -250 mg combo pack proMETHazin Yes [id number] 25mg Take 1 Univers e 25 mg 2-14 tablet by ity of tablet 00:00: mouth [place] 00 every 4 Medical (four) Branch hours as needed for Nausea and Vomiting (N/V). Yes [id number] 1{packe Take 1 [facility] vit 2-14 t} Packet by ity of 33-iron-fol 00:00: mouth [place] ic-dha 00 daily. Medical (SELECT-OB Branch + DHA) 29 mg iron-1 mg -250 mg combo pack proMETHazin Yes [id number] 25mg Take 1 [facility] e 25 mg 2-14 tablet by ity of tablet 00:00: mouth [place] 00 every 4 Medical (four) Branch hours as needed for Nausea and Vomiting (N/V). 2018- No [id number] 1{packe Take 1 [facility] vit 2-14 08-14 t} Packet by ity of 33-iron-fol 00:00: 00:00 [place] ic-dha 00 :00 daily. Medical (SELECT-OB Branch + DHA) 29 mg iron-1 mg -250 mg combo pack proMETHazin 2019- No [id number] 25mg Take 1 Univers e 25 mg 2-14 08-14 tablet by ity of tablet 00:00: 00:00 mouth [place] 00 :00 every 4 Medical (four) Branch hours as needed for Nausea and Vomiting (N/V). 2019- No [id number] 1{packe Take 1 [facility] vit 2-14 08-14 t} Packet by ity of 33-iron-fol 00:00: 00:00 mouth [place] ic-dha 00 :00 daily. Medical (SELECT-OB Branch + DHA) 29 mg iron-1 mg -250 mg combo pack proMETHazin 2019- No [id number] 25mg Take 1 [facility] e 25 mg 2-14 08-14 tablet by ity of tablet 00:00: 00:00 mouth [place] 00 :00 every 4 Medical (four) Branch hours as needed for Nausea and Vomiting (N/V). tizanidine tizanidine No tizanidine [place] 4 mg tablet 4 mg tablet 4 mg d a TAKE 1 TO 2 TAKE 1 TO 2 tablet [facility] TABLETS BY TABLETS BY TAKE 1 TO al MOUTH EVERY MOUTH EVERY 2 TABLETS Health NIGHT AT NIGHT AT BY MOUTH Out reac BEDTIME BEDTIME EVERY h NEEDED NEEDED NIGHT AT Program BEDTIME NEEDED Advil PM Advil PM No Advil PM tiZANidine tiZANidine No tiZANidine HCl 4 MG HCl 4 MG HCl 4 MG Advil PM Advil PM No Advil PM tiZANidine tiZANidine No tiZANidine HCl 4 MG HCl 4 MG HCl 4 MG Advil PM Advil PM No Advil PM tiZANidine tiZANidine No tiZANidine HCl 4 MG HCl 4 MG HCl 4 MG Advil PM Advil PM No Advil PM tiZANidine tiZANidine No tiZANidine HCl 4 MG HCl 4 MG HCl 4 MG Advil PM Advil PM No Advil PM tiZANidine tiZANidine No tiZANidine HCl 4 MG HCl 4 MG HCl 4 MG tiZANidine tiZANidine No tiZANidine HCl 4 MG HCl 4 MG HCl 4 MG Advil PM Advil PM No Advil PM tiZANidine tiZANidine No tiZANidine HCl 4 MG HCl 4 MG HCl 4 MG tiZANidine tiZANidine No tiZANidine HCl 4 MG HCl 4 MG HCl 4 MG Advil PM Advil PM No Advil PM tiZANidine tiZANidine No tiZANidine HCl 4 MG HCl 4 MG HCl 4 MG tiZANidine tiZANidine No tiZANidine HCl 4 MG HCl 4 MG HCl 4 MG Advil PM Advil PM No Advil PM tiZANidine tiZANidine No tiZANidine HCl 4 MG HCl 4 MG HCl 4 MG tiZANidine tiZANidine No tiZANidine HCl 4 MG HCl 4 MG HCl 4 MG tiZANidine tiZANidine No tiZANidine HCl 4 MG HCl 4 MG HCl 4 MG Advil PM Advil PM No Advil PM tiZANidine tiZANidine No tiZANidine HCl 4 MG HCl 4 MG HCl 4 MG Advil PM Advil PM No Advil PM tiZANidine tiZANidine No tiZANidine HCl 4 MG HCl 4 MG HCl 4 MG Advil PM Advil PM No Advil PM tiZANidine tiZANidine No tiZANidine HCl 4 MG HCl 4 MG HCl 4 MG Advil PM Advil PM No Advil PM tiZANidine tiZANidine No tiZANidine HCl 4 MG HCl 4 MG HCl 4 MG Advil PM Advil PM No Advil PM tiZANidine tiZANidine No tiZANidine HCl 4 MG HCl 4 MG HCl 4 MG Advil PM Advil PM No Advil PM tiZANidine tiZANidine No tiZANidine HCl 4 MG HCl 4 MG HCl 4 MG Advil PM Advil PM No Advil PM tiZANidine tiZANidine No tiZANidine HCl 4 MG HCl 4 MG HCl 4 MG tiZANidine tiZANidine No tiZANidine HCl 4 MG HCl 4 MG HCl 4 MG tiZANidine tiZANidine No tiZANidine HCl 4 MG HCl 4 MG HCl 4 MG tiZANidine tiZANidine No tiZANidine HCl 4 MG HCl 4 MG HCl 4 MG tiZANidine tiZANidine No tiZANidine HCl 4 MG HCl 4 MG HCl 4 MG tiZANidine tiZANidine No tiZANidine HCl 4 MG HCl 4 MG HCl 4 MG Amitriptyli Amitriptyli No 1{table QD Amitriptyl ne HCl 50 ne HCl 50 t_at_be ine HCl 50 MG MG dtime} MG tiZANidine tiZANidine No tiZANidine HCl 4 MG HCl 4 MG HCl 4 MG Amitriptyli Amitriptyli No Amitriptyl ne HCl 25 ne HCl 25 ine HCl 25 MG MG MG tiZANidine tiZANidine No tiZANidine HCl 4 MG HCl 4 MG HCl 4 MG Amitriptyli Amitriptyli No Amitriptyl ne HCl 25 ne HCl 25 ine HCl 25 MG MG MG Amitriptyli Amitriptyli No 1{table QD Amitriptyl ne HCl 50 ne HCl 50 t_at_be ine HCl 50 MG MG dtime} MG tiZANidine tiZANidine No tiZANidine HCl 4 MG HCl 4 MG HCl 4 MG Amitriptyli Amitriptyli No Amitriptyl ne HCl 25 ne HCl 25 ine HCl 25 MG MG MG Amitriptyli Amitriptyli No 1{table QD Amitriptyl ne HCl 50 ne HCl 50 t_at_be ine HCl 50 MG MG dtime} MG tiZANidine tiZANidine No tiZANidine HCl 4 MG HCl 4 MG HCl 4 MG tiZANidine tiZANidine No tiZANidine HCl 4 MG HCl 4 MG HCl 4 MG Amitriptyli Amitriptyli No Amitriptyl ne HCl 25 ne HCl 25 ine HCl 25 MG MG MG tiZANidine tiZANidine No tiZANidine HCl 4 MG HCl 4 MG HCl 4 MG Amitriptyli Amitriptyli No 1{table QD Amitriptyl ne HCl 50 ne HCl 50 t_at_be ine HCl 50 MG MG dtime} MG Amitriptyli Amitriptyli No Amitriptyl ne HCl 50 ne HCl 50 ine HCl 50 MG MG MG Amitriptyli Amitriptyli No 1{table QD Amitriptyl ne HCl 50 ne HCl 50 t_at_be ine HCl 50 MG MG dtime} MG tiZANidine tiZANidine No tiZANidine HCl 4 MG HCl 4 MG HCl 4 MG Amitriptyli Amitriptyli No Amitriptyl ne HCl 25 ne HCl 25 ine HCl 25 MG MG MG Amitriptyli Amitriptyli No Amitriptyl ne HCl 50 ne HCl 50 ine HCl 50 MG MG MG tiZANidine tiZANidine No tiZANidine HCl 4 MG HCl 4 MG HCl 4 MG Amitriptyli Amitriptyli No Amitriptyl ne HCl 25 ne HCl 25 ine HCl 25 MG MG MG Amitriptyli Amitriptyli No 1{table QD Amitriptyl ne HCl 50 ne HCl 50 t_at_be ine HCl 50 MG MG dtime} MG Amitriptyli Amitriptyli No Amitriptyl ne HCl 50 ne HCl 50 ine HCl 50 MG MG MG tiZANidine tiZANidine No tiZANidine HCl 4 MG HCl 4 MG HCl 4 MG Amitriptyli Amitriptyli No Amitriptyl ne HCl 25 ne HCl 25 ine HCl 25 MG MG MG Amitriptyli Amitriptyli No 1{table QD Amitriptyl ne HCl 50 ne HCl 50 t_at_be ine HCl 50 MG MG dtime} MG Amitriptyli Amitriptyli No Amitriptyl ne HCl 50 ne HCl 50 ine HCl 50 MG MG MG Amitriptyli Amitriptyli No 1{table QD Amitriptyl ne HCl 50 ne HCl 50 t_at_be ine HCl 50 MG MG dtime} MG tiZANidine tiZANidine No tiZANidine HCl 4 MG HCl 4 MG HCl 4 MG Amitriptyli Amitriptyli No Amitriptyl ne HCl 50 ne HCl 50 ine HCl 50 MG MG MG tiZANidine tiZANidine No tiZANidine HCl 4 MG HCl 4 MG HCl 4 MG Amitriptyli Amitriptyli No Amitriptyl ne HCl 25 ne HCl 25 ine HCl 25 MG MG MG Amitriptyli Amitriptyli No 1{table QD Amitriptyl ne HCl 50 ne HCl 50 t_at_be ine HCl 50 MG MG dtime} MG tiZANidine tiZANidine No tiZANidine HCl 4 MG HCl 4 MG HCl 4 MG Amitriptyli Amitriptyli No Amitriptyl ne HCl 50 ne HCl 50 ine HCl 50 MG MG MG tiZANidine tiZANidine No tiZANidine HCl 4 MG HCl 4 MG HCl 4 MG Amitriptyli Amitriptyli No Amitriptyl ne HCl 25 ne HCl 25 ine HCl 25 MG MG MG Amitriptyli Amitriptyli No 1{table QD Amitriptyl ne HCl 50 ne HCl 50 t_at_be ine HCl 50 MG MG dtime} MG tiZANidine tiZANidine No tiZANidine HCl 4 MG HCl 4 MG HCl 4 MG Amitriptyli Amitriptyli No Amitriptyl ne HCl 25 ne HCl 25 ine HCl 25 MG MG MG tiZANidine tiZANidine No tiZANidine HCl 4 MG HCl 4 MG HCl 4 MG Amitriptyli Amitriptyli No Amitriptyl ne HCl 50 ne HCl 50 ine HCl 50 MG MG MG Amitriptyli Amitriptyli No 1{table QD Amitriptyl ne HCl 50 ne HCl 50 t_at_be ine HCl 50 MG MG dtime} MG tiZANidine tiZANidine No tiZANidine HCl 4 MG HCl 4 MG HCl 4 MG Amitriptyli Amitriptyli No Amitriptyl ne HCl 25 ne HCl 25 ine HCl 25 MG MG MG tiZANidine tiZANidine No tiZANidine HCl 4 MG HCl 4 MG HCl 4 MG Amitriptyli Amitriptyli No Amitriptyl ne HCl 50 ne HCl 50 ine HCl 50 MG MG MG Amitriptyli Amitriptyli No Amitriptyl ne HCl 50 ne HCl 50 ine HCl 50 MG MG MG tiZANidine tiZANidine No tiZANidine HCl 4 MG HCl 4 MG HCl 4 MG tiZANidine tiZANidine No tiZANidine HCl 4 MG HCl 4 MG HCl 4 MG Amitriptyli Amitriptyli No Amitriptyl ne HCl 25 ne HCl 25 ine HCl 25 MG MG MG Amitriptyli Amitriptyli No Amitriptyl ne HCl 50 ne HCl 50 ine HCl 50 MG MG MG tiZANidine tiZANidine No tiZANidine HCl 4 MG HCl 4 MG HCl 4 MG tiZANidine tiZANidine No tiZANidine HCl 4 MG HCl 4 MG HCl 4 MG Amitriptyli Amitriptyli No Amitriptyl ne HCl 25 ne HCl 25 ine HCl 25 MG MG MG Amitriptyli Amitriptyli No Amitriptyl ne HCl 50 ne HCl 50 ine HCl 50 MG MG MG tiZANidine tiZANidine No tiZANidine HCl 4 MG HCl 4 MG HCl 4 MG tiZANidine tiZANidine No tiZANidine HCl 4 MG HCl 4 MG HCl 4 MG Amitriptyli Amitriptyli No Amitriptyl ne HCl 25 ne HCl 25 ine HCl 25 MG MG MG tiZANidine tiZANidine No tiZANidine HCl 4 MG HCl 4 MG HCl 4 MG tiZANidine tiZANidine No tiZANidine HCl 4 MG HCl 4 MG HCl 4 MG Amitriptyli Amitriptyli No 1{table QD Amitriptyl ne HCl 50 ne HCl 50 t_at_be ine HCl 50 MG MG dtime} MG Amitriptyli Amitriptyli No Amitriptyl ne HCl 50 ne HCl 50 ine HCl 50 MG MG MG Amitriptyli Amitriptyli No Amitriptyl ne HCl 25 ne HCl 25 ine HCl 25 MG MG MG tiZANidine tiZANidine No tiZANidine HCl 4 MG HCl 4 MG HCl 4 MG Amitriptyli Amitriptyli No Amitriptyl ne HCl 50 ne HCl 50 ine HCl 50 MG MG MG Amitriptyli Amitriptyli No Amitriptyl ne HCl 25 ne HCl 25 ine HCl 25 MG MG MG Amitriptyli Amitriptyli No 1{table QD Amitriptyl ne HCl 50 ne HCl 50 t_at_be ine HCl 50 MG MG dtime} MG tiZANidine tiZANidine No tiZANidine HCl 4 MG HCl 4 MG HCl 4 MG Amitriptyli Amitriptyli No Amitriptyl ne HCl 25 ne HCl 25 ine HCl 25 MG MG MG tiZANidine tiZANidine No tiZANidine HCl 4 MG HCl 4 MG HCl 4 MG Amitriptyli Amitriptyli No Amitriptyl ne HCl 50 ne HCl 50 ine HCl 50 MG MG MG Amitriptyli Amitriptyli No Amitriptyl ne HCl 25 ne HCl 25 ine HCl 25 MG MG MG Mydayis Mydayis No 1{capsu QD Mydayis 37.5 MG 37.5 MG le_in_t 37.5 MG he_morn ing} tiZANidine tiZANidine No tiZANidine HCl 4 MG HCl 4 MG HCl 4 MG tiZANidine tiZANidine No tiZANidine HCl 4 MG HCl 4 MG HCl 4 MG Amitriptyli Amitriptyli No Amitriptyl ne HCl 50 ne HCl 50 ine HCl 50 MG MG MG Mydayis Mydayis No 1{capsu QD Mydayis 37.5 MG 37.5 MG le_in_t 37.5 MG he_morn ing} Amitriptyli Amitriptyli No 1{table QD Amitriptyl ne HCl 50 ne HCl 50 t_at_be ine HCl 50 MG MG dtime} MG Amitriptyli Amitriptyli No Amitriptyl ne HCl 25 ne HCl 25 ine HCl 25 MG MG MG Amitriptyli Amitriptyli No Amitriptyl ne HCl 50 ne HCl 50 ine HCl 50 MG MG MG Amitriptyli Amitriptyli No 1{table QD Amitriptyl ne HCl 50 ne HCl 50 t_at_be ine HCl 50 MG MG dtime} MG tiZANidine tiZANidine No tiZANidine HCl 4 MG HCl 4 MG HCl 4 MG tiZANidine tiZANidine No tiZANidine HCl 4 MG HCl 4 MG HCl 4 MG tiZANidine tiZANidine No tiZANidine HCl 4 MG HCl 4 MG HCl 4 MG Amitriptyli Amitriptyli No Amitriptyl ne HCl 25 ne HCl 25 ine HCl 25 MG MG MG Amitriptyli Amitriptyli No Amitriptyl ne HCl 50 ne HCl 50 ine HCl 50 MG MG MG tiZANidine tiZANidine No tiZANidine HCl 4 MG HCl 4 MG HCl 4 MG tiZANidine tiZANidine No tiZANidine HCl 4 MG HCl 4 MG HCl 4 MG Amitriptyli Amitriptyli No Amitriptyl ne HCl 50 ne HCl 50 ine HCl 50 MG MG MG Amitriptyli Amitriptyli No Amitriptyl ne HCl 25 ne HCl 25 ine HCl 25 MG MG MG tiZANidine tiZANidine No tiZANidine HCl 4 MG HCl 4 MG HCl 4 MG tiZANidine tiZANidine No tiZANidine HCl 4 MG HCl 4 MG HCl 4 MG Mydayis 50 Mydayis 50 No 1{capsu QD Mydayis 50 MG MG le_in_t MG he_morn ing} tiZANidine tiZANidine No tiZANidine HCl 4 MG HCl 4 MG HCl 4 MG tiZANidine tiZANidine No tiZANidine HCl 4 MG HCl 4 MG HCl 4 MG Amitriptyli Amitriptyli No 1{table QD Amitriptyl ne HCl 50 ne HCl 50 t_at_be ine HCl 50 MG MG dtime} MG Amitriptyli Amitriptyli No Amitriptyl ne HCl 50 ne HCl 50 ine HCl 50 MG MG MG Amitriptyli Amitriptyli No Amitriptyl ne HCl 25 ne HCl 25 ine HCl 25 MG MG MG tiZANidine tiZANidine tiZANidine HCl 4 MG HCl 4 MG 09-03 HCl 4 MG 00:00 :00 tiZANidine tiZANidine 2021- No tiZANidine HCl 4 MG HCl 4 MG 12-10 HCl 4 MG 00:00 :00 tiZANidine tiZANidine 2021- No tiZANidine HCl 4 MG HCl 4 MG 12-06 HCl 4 MG 00:00 :00 Immunizations Ordered Filled Immunization Date Status Comments Sour e Immunization Name Name [facility] 2018-10-22 Completed [facility] 00:[facility]00 [facility] 2018-10-22 Completed [facility] 00:[facility]00 [facility] 2018[facility]10[facility]22 [facility] 2018-10-22 Com[facility] 00:[facility]:00 [facility] Td[facility] 2018-10-22 Completed [facility] 00:00:00 [facility] Td[facility] 2018-10-22 Completed [facility] 00:00:00 [facility] T[facility] 2018-10-22 Completed [facility] 00:00:00 [facility] T[facility] 2018-10-22 Completed [facility] 00:00:00 [facility] Td[facility] 2018-10-22 Completed [facility] 00:00:00 [facility] Tdap 2018-10-22 Completed [facility] 00:00:00 [facility] Tdap 2018-10-22 Completed [facility] 00:00:00 [facility] Td 2005-04-09 Completed [facility] 00:00:00 [facility] Td 2005-04-09 Completed [facility] 00[facility]00:00 [facility] Td 2005-04-09 Completed [facility] 00:00:00 [facility] Td 2005-04-09 Completed [facility] 00:00:00 [facility] Td 2005-04-09 Completed [facility] 00:00:00 [facility] Td 2005-04-09 Completed [facility] 00:00:00 [facility] Td 2005-04-09 Completed [facility] 00:00:00 [facility] Td 2005-04-09 Completed [facility] 00:00:00 [facility] Td 2005-04-09 Completed [facility] 00:00:00 [facility] Td 2005-04-09 Completed [facility] 00:00:00 [facility] Td 2005-04-09 Completed [facility] 00:00:00 [facility] Td 2005-04-09 Completed [facility] 00:00:00 [facility] Td 2005-04-09 Completed [facility] 00:00:00 [facility] Td 2005-04-09 Completed [facility] 00[facility]00:00 [facility] Td 2005-04-09 Completed [facility] 00:00:00 [facility] Td 2005-04-09 Completed [facility] 00:00:00 [facility] Td 2005-04-09 Completed [facility] 00:00:00 [facility] Vital Signs Vital Name Observation Time Observation Value Comments Source height 2022-05-11 11:40:00 66 [in_i] [facility] weight 2022-05-11 11:40:00 145 [lb_av] [facility] bmi 2022-05-11 11:40:00 23.4 kg/m2 [facility] blood pressure 2022-05-11 11:40:00 125 mm[Hg] [facility] [facility] blood pressure 2022-05-11 11:40:00 72 mm[Hg] Common [facility] - diastolic [facility] height 2022-03-07 09:00:00 66 [in_i] [facility] weight 2022-03-07 09:00:00 143.5 [lb_av] Common [facility] temperature 2022-03-07 09:00:00 97.3 [degF] [facility] bmi 2022-03-07 09:00:00 23.16 kg/m2 [facility] oximetry 2022-03-07 09:00:00 99 % [facility] respiratory rate 2022-03-07 09:00:00 18 /min Comm on [facility] blood pressure 2022-03-07 09:00:00 129 mm[Hg] Common [facility] - systolic [facility] blood pressure 2022-03-07 09:00:00 69 mm[Hg] [facility] - [facility] height 2022-01-30 16:20:00 66 [in_i] Common S pirit - [facility] weight 2022-01-30 16:20:00 147 [lb_av] Common S pirit - [facility] bmi 2022-01-30 16:20:00 23.72 kg/m2 Common S pirit - [facility] blood pressure 2022-01-30 16:20:00 130 mm[Hg] [facility] - systolic [facility] blood pressure 2022-01-30 16:20:00 70 mm[Hg] [facility] - diastolic [facility] weight 2021-12-28 13:10:00 148 [lb_av] Common S pirit - [facility] temperature 2021-12-28 13:10:00 98 [degF] Common S pirit - [facility] bmi 2021-12-28 13:10:00 23.89 kg/m2 Common S pirit - [facility] blood pressure 2021-12-28 13:10:00 134 mm[Hg] [facility] - systolic [facility] blood pressure 2021-12-28 13:10:00 75 mm[Hg] [facility] - diastolic [facility] height 2021-12-28 13:10:00 66 [in_i] Common S pirit - [facility] height 2021-11-14 11:30:00 66 [in_i] Common S pirit - [facility] weight 2021-11-14 11:30:00 153 [lb_av] Common S pirit - [facility] temperature 2021-11-14 11:30:00 97 [degF] Common S pirit - [facility] bmi 2021-11-14 11:30:00 24.69 kg/m2 Common S pirit - [facility] blood pressure 2021-11-14 11:30:00 131 mm[Hg] [facility] - systolic [facility] blood pressure 2021-11-14 11:30:00 78 mm[Hg] [facility] - diastolic [facility] height 2021-09-23 08:20:00 66 [in_i] Common S pirit - [facility] weight 2021-09-23 08:20:00 153 [lb_av] Common S pirit [facility] temperature 2021-09-23 08:20:00 98 [degF] Common S pirit - [facility] bmi 2021-09-23 08:20:00 24.69 kg/m2 Common S pirit - [facility] blood pressure 2021-09-23 08:20:00 132 mm[Hg] [facility] - systolic [facility] blood pressure 2021-09-23 08:20:00 60 mm[Hg] [facility] - diastolic [facility] height 2021-08-26 10:20:00 66 [in_i] [facility] weight 2021-08-26 10:20:00 152.6 [lb_av] [facility] temperature 2021-08-26 10:20:00 98.1 [degF] Common S pirit [facility] bmi 2021-08-26 10:20:00 24.63 kg/m2 [facility] S pirit [facility] oximetry 2021-08-26 10:20:00 99 % [facility] S pirit [facility] respiratory rate 2021-08-26 10:20:00 18 /min Comm on Spirit - [facility] blood pressure 2021-08-26 10:20:00 132 mm[Hg] [facility] - systolic [facility] blood pressure 2021-08-26 10:20:00 65 mm[Hg] [facility] - diastolic [facility] height 2021-07-28 09:00:00 66 [in_i] Common S pirit [facility] weight 2021-07-28 09:00:00 155.7 [lb_av] [facility] temperature 2021-07-28 09:00:00 98.4 [degF] Common S pirit [facility] bmi 2021-07-28 09:00:00 25.13 kg/m2 [facility] oximetry 2021-07-28 09:00:00 100 % [facility] respiratory rate 2021-07-28 09:00:00 18 /min Comm on [facility] blood pressure 2021-07-28 09:00:00 125 mm[Hg] Common [facility] - systolic [facility] blood pressure 2021-07-28 09:00:00 78 mm[Hg] Common [facility] - diastolic [facility] height 2021-07-22 11:20:00 66 [in_i] Common [facility] weight 2021-07-22 11:20:00 160 [lb_av] [facility] bmi 2021-07-22 11:20:00 25.82 kg/m2 [facility] height 2021-06-09 09:00:00 66 [in_i] [facility] weight 2021-06-09 09:00:00 159.8 [lb_av] [facility] temperature 2021-06-09 09:00:00 96.8 [degF] [facility] bmi 2021-06-09 09:00:00 25.79 kg/m2 [facility] oximetry 2021-06-09 09:00:00 98 % [facility] respiratory rate 2021-06-09 09:00:00 17 /min Comm on [facility] blood pressure 2021-06-09 09:00:00 112 mm[Hg] Common [facility] - systolic [facility] blood pressure 2021-06-09 09:00:00 62 mm[Hg] Common [facility] diastolic [facility] height 2021-04-20 14:20:00 66 [in_i] [facility] weight 2021-04-20 14:20:00 160 [lb_av] [facility] temperature 2021-04-20 14:20:00 97 [degF] Common S [facility] bmi 2021-04-20 14:20:00 25.82 kg/m2 Common S [facility] height 2021-03-22 16:00:00 66 [in_i] [facility] weight 2021-03-22 16:00:00 157.3 [lb_av] Common [facility] temperature 2021-03-22 16:00:00 98.1 [degF] Common [facility] bmi 2021-03-22 16:00:00 25.39 kg/m2 [facility] oximetry 2021-03-22 16:00:00 99 % [facility] respiratory rate 2021-03-22 16:00:00 16 /min Comm on [facility] blood pressure 2021-03-22 16:00:00 134 mm[Hg] Common [facility] systolic [facility] blood pressure 2021-03-22 16:00:00 80 mm[Hg] Common [facility] diastolic [facility] Systolic blood 2018-12-19 20:51:00 139 mm[Hg] Univer sity [facility] Diastolic blood 2018-12-19 20:51:00 82 mm[Hg] [facility] rate 2018-12-19 20:50:00 69 /min [facility] Body temperature 2018-12-19 20:50:00 37.06 Afia [facility] Res[facility] rate 2018-12-19 20:50:00 21 /min [facility] Body height 2018-12-19 20:50:00 167.6 cm [facility] Body weight 2018-12-19 20:50:00 70.308 kg [facility] BMI 2018-12-19 20:50:00 25.02 kg/m2 [facility] Systolic blood 2018-12-12 16:24:00 129 mm[Hg] Univer sity [facility] Diastolic blood 2018-12-12 16:24:00 90 mm[Hg] Unive rsity of pressure [facility] Heart rate 2018-12-12 16:24:00 69 /min [facility] Body temperature 2018-12-12 16:24:00 36.94 Afia Univ ersity [facility] Respiratory rate 2018-12-12 16:24:00 21 /min Univ ersity [facility] Body height 2018-12-12 16:24:00 167.6 cm [facility] Body weight 2018-12-12 16:24:00 69.854 kg [facility] BMI 2018-12-12 16:24:00 24.86 kg/m2 Universi ty of [facility] Systolic blood 2018-11-26 16:10:00 125 mm[Hg] Univer sity of pressure [facility] Diastolic blood 2018-11-26 16:10:00 79 mm[Hg] Unive rsity of pressure [facility] [place] Heart rate 2018-11-26 16:10:00 73 /min [facility] [place] [place] Body temperature 2018-11-26 16:10:00 36.5 Afia Univ ersity [facility] Respiratory rate 2018-11-26 16:10:00 16 /min Univ ersity [facility] Body height 2018-11-26 16:10:00 167.6 cm [facility] [place] Body weight 2018-11-26 16:10:00 74.56 kg [facility] BMI 2018-11-26 16:10:00 26.53 kg/m2 [facility] Systolic blood 2018-11-21 13:00:00 122 mm[Hg] Univer sity of pressure [facility] Diastolic blood 2018-11-21 13:00:00 82 mm[Hg] Unive rsity of pressure [facility] Heart rate 2018-11-21 13:00:00 71 /min [facility] [place] Body temperature 2018-11-21 13:00:00 36.72 Afia Univ ersity [facility] Respiratory rate 2018-11-21 13:00:00 18 /min Univ [facility] Oxygen saturation in 2018-11-21 13:00:00 98 /min [facility] Arterial blood by [facility] Pulse oximetry Branch Body height 2018-11-19 21:03:00 165.1 cm [facility] Body weight 2018-11-19 21:03:00 78.427 kg [facility] BMI 2018-11-19 21:03:00 28.77 kg/m2 [facility] Respiratory rate 2018-11-19 18:02:00 19 /min Univ ersity of [facility] Body height 2018-11-19 18:02:00 165.1 cm [facility] Body weight 2018-11-19 18:02:00 78.291 kg [facility] BMI 2018-11-19 18:02:00 28.72 kg/m2 [facility] Oxygen saturation in 2018-11-19 18:02:00 99 /min University of Arterial blood by [facility] [employer] Pulse oximetry Branch Systolic blood 2018-11-19 18:02:00 133 mm[Hg] Univer sity of pressure [facility] Diastolic blood 2018-11-19 18:02:00 76 mm[Hg] Unive rsity of pressure [facility] Heart rate 2018-11-19 18:02:00 88 /min [facility]i [facility] Body temperature 2018-11-19 18:02:00 36.89 Afia Univ ersity of [facility] Systolic blood 2018-11-05 16:06:00 133 mm[Hg] Univer sity of pressure [facility] Diastolic blood 2018-11-05 16:06:00 83 mm[Hg] Unive rsity of pressure [facility] Heart rate 2018-11-05 16:06:00 95 /min [facility] Body temperature 2018-11-05 16:06:00 37 Afia Univ ersity [facility] Respiratory rate 2018-11-05 16:06:00 19 /min Univ ersity of [facility] Body height 2018-11-05 16:06:00 165.1 cm [facility] Body weight 2018-11-05 16:06:00 77.384 kg [facility] BMI 2018-11-05 16:06:00 28.39 kg/m2 [facility] Oxygen saturation in 2018-11-05 16:06:00 98 /min University of Arterial blood by [place] [employer] Pulse oximetry Branch Procedures Procedure Date / Time Performing Clinician Source Performed CBC WITH DIFFERENTIAL 2018-11-20 06:35:00 Rocio [facility] VENOUS CORD GAS 2018-11-19 22:49:00 Cat Brady [facility] SURGICAL PATHOLOGY EXAM 2018-11-19 22:41:00 Giuliano [facility] HEPATITIS B SURFACE 2018-11-19 21:48:00 Caityln [facility] ANTIGEN [facility] GALV ONLY - SYPHILIS 2018-11-19 21:48:00 Cat Brady [facility] IGG/IGM [facility] SECTION 2018-11-19 21:44:00 Giuliano [facility] CERCLAGE REMOVAL 2018-11-19 21:44:00 Giuliano [facility] TUBAL LIGATION 2018-11-19 21:44:00 Giuliano [facility] TYPE AND SCREEN 2018-11-19 21:37:00 Cat Brady [facility] NON-STRESS TEST 2018-11-19 19:58:38 Gris Demarco [facility] HOSPITAL ADMISSION 2018-11-19 05:01:00 Doctor Unassigned, [facility] NO SHOW OR MISSED 2018-11-05 15:59:36 Doctor Unassigned, [facility] APPOINTMENT POLICY [facility] ACKNOWLEDGEMENT Plan of Care Planned Activity Planned Date Details Comments Source Future Scheduled Goal: Concentration, [place] [employer] Test target: I can Health Outre h concentrate fully whent Prog sarah I want to with no difficulty [code = Goal: Concentration, target: I can concentrate fully whent I want to with no difficulty] Future Scheduled Attention Deficit/ [place] [employer] Test Hyperactivity master Health Outreach treatment plan -address Prog sarah inattention symptoms; including failure to pay close attention to details, sustain attention, troubles listening, difficulties following through on tasks, poor organization, losing items necessary for tasks, easily distractable -Address hyperactivity and impulsivity; including: fidgeting, restlessness, excessive talking, poor impulse control Generalized Anxiety Disorder Master Treatment Plan -Develop coping regarding person's difficulties managing worrying -Develop coping skills to address restlessness -Develop coping skills to address fatigue -Develop coping skills to address difficulties with concentration -Develop coping skills to address irritability -Develop coping skills to address muscle tension -Develop coping skills to address sleep disturbances -Address anxiety impact on social functioning -Address anxiety impact on occupational functioning -Address anxiety impact on activities of daily living Persistent Depressive Disorder Master Treatment Plan -Address poor appetite or overeating -Address insomnia or hypersomnia -Address low energy or fatigue -Address low self-esteem -Address poor concentration or difficulties making decisions -Address feelings of hopelessness -Address depression's impact on social functioning -Address depression's impact on occupational functioning -Address depression's impact on activities of daily living [code = Attention Deficit/ Hyperactivity master treatment plan -address inattention symptoms; including fail] Encounters Start End Encounter Admission Attending Care Care Encounter Source Date/Time Date/Time Type Type Clinicians Facility Department ID 2022-08-08 Outpatient Joseph, [facility] Common 08:05:00 [facility] [address] [facility] 2022-08-07 Outpatient Joseph, [facility] Common 09:22:02 [facility] [address] [facility] 2022-05-10 [facility], [facility] Common 13[facility]05:02 [facility] [address] [facility] 2022-03-06 Outpatient Joseph, [facility] Common 14:52:01 [facility] 2022-01-26 Outpatient Joseph, [facility] Common 11:12:01 [facility] 2021-08-24 Outpatient [facility], [facility] Common 10:44:10 [facility] 2021-05-04 Outpatient Joseph, [facility] Common 14:24:51 Salvador [facility] 2021-05-04 Outpatient Joseph, [facility] Common 13:34:35 Salvador [facility] 2021-05-04 Outpatient Joseph, STLMLC STLMLC [id number] Common 13:07:36 [facility] [address] [facility] 2022-05-11 2022-05-11 OFFICE STLMLC STLMLC [id number] Co mmon 00:00:00 00:00:00 VISIT [facility] PT - CHI LEVEL 3 [facility] 2022-04-06 2022-04-06 (WEB) STLMLC STLMLC [id number] Co mmon 00:00:00 00:00:00 [facility] 2022-03-07 2022-03-07 OFFICE STLMLC STLMLC [id number] Co mmon 00:00:00 00:00:00 VISIT [facility] PT - CHI LEVEL 4 [facility] 2022-03-03 2022-03-03 (WEB) STLMLC STLMLC [id number] Co mmon 00:00:00 00:00:00 [facility] 2022-02-09 2022-02-09 (WEB) STLMLC STLMLC [id number] Co mmon 00:00:00 00:00:00 [facility] 2022-01-30 2022-01-30 OFFICE STLMLC STLMLC [id number] Co mmon 00:00:00 00:00:00 VISIT EST Spir it PT LEVEL 3 [facility] 2021-12-28 2021-12-28 OFFICE STLMLC STLMLC [id number] Co mmon 00:00:00 00:00:00 VISIT [facility] PT - CHI LEVEL 4 [facility] 2021-12-01 2021-12-01 (WEB) STLMLC STLMLC [id number] Co mmon 00:00:00 00:00:00 [facility] 2021-11-29 2021-11-29 (WEB) STLMLC STLMLC [id number] Co mmon 00:00:00 00:00:00 [facility] 2021-11-26 2021-11-26 (WEB) STLMLC STLMLC [id number] Co mmon 00:00:00 00:00:00 [facility] 2021-11-25 2021-11-25 (WEB) STLMLC STLMLC [id number] Co mmon 00:00:00 00:00:00 [facility] 2021-11-24 2021-11-24 (WEB) STLMLC STLMLC [id number] Co mmon 00:00:00 00:00:00 [facility] 2021-11-23 2021-11-23 (WEB) STLMLC STLMLC [id number] Co mmon 00:00:00 00:00:00 [facility] 2021-11-14 2021-11-14 OFFICE STLMLC STLMLC [id number] Co mmon 00:00:00 00:00:00 VISIT [facility] PT [address] 2021-10-11 2021-10-11 (WEB) STLMLC STLMLC [id number] Co mmon 00:00:00 00:00:00 [facility] 2021-10-07 2021-10-07 (WEB) STLMLC STLMLC [id number] Co mmon 00:00:00 00:00:00 [facility] 2021-10-07 2021-10-07 (WEB) STLMLC STLMLC [id number] Co mmon 00:00:00 00:00:00 [facility] 2021-09-23 2021-09-23 OFFICE STLMLC STLMLC [id number] Co mmon 00:00:00 00:00:[address] 2021-09-18 2021-09-18 (WEB) STLMLC STLMLC [id number] Co mmon 00:00:00 00:00:00 [facility] 2021-09-17 2021-09-17 (WEB) STLMLC STLMLC [id number] Co mmon 00:00:00 00:00:00 [facility] 2021-08-26 2021-08-26 (WELLNESS) STLMLC STLMLC [id number] Common 00:00:00 00:00:00 Wellness Spiri t Visit - [facility] 2021-07-28 2021-07-28 OFFICE STLMLC STLMLC [id number] Co mmon 00:00:00 00:00:00 VISIT Spirit ESTAB PT - [facility] LEVEL 4 [facility] 2021-07-28 2021-07-28 (WEB) STLMLC STLMLC [id number] Co mmon 00:00:00 00:00:00 [facility] 2021-07-28 2021-07-28 (WEB) STLMLC STLMLC [id number] Co mmon 00:00:00 00:00:00 [facility] 2021-07-26 2021-07-26 (WEB) STLMLC STLMLC [id number] Co mmon 00:00:00 00:00:00 [facility] 2021-07-25 2021-07-25 (WEB) STLMLC STLMLC [id number] Co mmon 00:00:00 00:00:00 [facility] 2021-07-25 2021-07-25 (WEB) STLMLC STLMLC [id number] Co mmon 00:00:00 00:00:00 [facility] 2021-07-25 2021-07-25 (WEB) STLMLC STLMLC [id number] Co mmon 00:00:00 00:00:00 [facility] 2021-07-22 2021-07-22 (WEB) STLMLC STLMLC [id number] Co mmon 00:00:00 00:00:00 [facility] 2021-07-22 2021-07-22 OFFICE STLMLC STLMLC [id number] Co mmon 00:00:00 00:00:00 VISIT EST Spir it PT LEVEL 3 [facility] 2021-07-21 2021-07-21 (TEL) STLMLC STLMLC [id number] Co mmon 00:00:00 00:00:00 [facility] 2021-07-18 2021-07-18 Outpatient GEOFF_KRISTINE LALJ [facility] [id number] [place] 02:08:00 02:08:00 N [id number] [facility] 2021-07-18 2021-07-18 Maggie Weinberg [facility] [place] - [id number] M at[place] 00:00:00 00:00:00 Saravanan Mariee da PSYD: 1700 [employer] Epi scop [place] [address] [address] [place] [id number] h , Ph. Program (971) --20072021-07-16 2021-07-16 [id number] [place] 11:02:00 11:02:00 N [id number] [facility] 2021-07-15 2021-07-15 [id number]- [place] 08:30:00 08:30:00 N [id number] [facility] 2021-06-16 2021-06-16 Outpatient [facility] [id number]- [place] 02:48:00 02:48:00 N [id number] [facility] 2021-06-16 2021-06-16 (WEB) STLMLC STLC [id number] Co mmon 00:00:00 00:00:00 [facility] 2021-06-10 2021-06-10 (WEB) STLMLC STLMLC [id number] Co mmon 00:00:00 00:00:00 [facility] 2021-06-09 2021-06-09 OFFICE STLMLC STLMLC [id number] Co mmon 00:00:00 00:00:00 VISIT EST Spir it PT LEVEL 3 - [facility] 2021-06-09 2021-06-09 (WEB) STLMLC STLMLC [id number] Co mmon 00:00:00 00:00:00 [facility] 2021-06-07 2021-06-07 (WEB) STLMLC STLMLC [id number] Co mmon 00:00:00 00:00:00 [facility] 2021-06-07 2021-06-07 (WEB) STLMLC STLMLC [id number] Co mmon 00:00:00 00:00:00 [facility] 2021-06-07 2021-06-07 (WEB) STLMLC STLMLC [id number] Co mmon 00:00:00 00:00:00 [facility] 2021-04-20 2021-04-20 OFFICE STLMLC STLMLC [id number] Co mmon 00:00:00 00:00:00 VISIT EST Spir it PT LEVEL 3 - [facility] 2021-03-22 2021-03-22 OFFICE STLMLC STLMLC [id number] Co mmon 00:00:00 00:00:00 VISIT Spirit ESTAB PT - [facility] LEVEL 4 [facility] 2020-10-14 2020-10-14 Outpatient STLMLC STLMLC [id number] Common 00:00:00 00:00:00 [facility] 2020-08-31 2020-08-31 Outpatient STLMLC STLMLC [id number] Common 00:00:00 00:00:00 [facility] 2018-12-23 2018-12-23 Patient Harding, [facility] [id number] Univers 00:00:00 00:00:00 Secure Msg Halle Garcia SOAP CHIPPER [id number] ity of REGIONAL [id number] Rex as MATERNAL [phone] [facility] ical & CHILD [address] [place] [address] 2018-12-19 2018-12-19 Routine [facility] [facility] [id number] Univers 15:30:58 16:03:01 us, Amanda SOAP CHIPPER [id number] ity of Visit REGIONAL [id number] Rex as MATERNAL [phone] [facility] [address] [place] [address] 2018-12-12 2018-12-12 Routine [facility] [facility] [id number] Univers 11:17:12 11:54:46 us, Amanda SOAP CHIPPER [id number] ity of Visit [facility] [id number] Rex as MATERNAL [phone] [facility] [address] [place] [address] 2018-12-12 2018-12-12 Refgerardo Chin [facility] [id number] Univers 00:00:00 00:00:00 , Amanda SOAP CHIPPER [id number] ity of [facility] [id number] Rex as MATERNAL [phone] [facility] & CHILD [address] [place] [address] 2018-11-28 2018-11-28 Patient Vivek [facility] [id number] Univers 00:00:00 00:00:00 Secure Msg Sarah Ivey [id number] [id number] [phone] Nm dical formerly [facility] 134 [facility] 2018-11-28 2018-11-28 Patient Doctor MAGGIE [id number] Univers 00:00:00 00:00:00 Secure Msg Unassigned, HÉCTOR [id number] ity of [facility] [id number] Rex as [id number] [address] 2018-11-26 2018-11-26 [facility] [id number] Univers 11:03:46 11:26:58 Ciera Baez SOAP CHIPPER [id number] i ty of Visit [facility] [id number] Rex as MATERNAL [phone] [facility] [address] [place] [address] 2018-11-25 2018-11-25 Patient Doctor MAGGIE [id number] Univers 00:00:00 00:00:00 Secure Msg Unassigned, HÉCTOR [id number] ity of [facility] [id number] Rex as [phone] [address] [address] 2018-11-19 2018-11-21 Hospital MAGGIE Nobles 1.2.840.114 [id number] Univers 15:53:00 15:09:00 Encounter Yahir LOWEY 350.1.13.10 ity of HOSPITAL 4.2.7.2.686 Rex as [phone] [facility] [address] 2018-11-19 2018-11-19 Routine Faculty, [facility] 1.2 .840.114 [id number] Univers 12:49:52 14:30:55 Gris Demarco SOAP CHIPPER 350.1.1 3.10 ity of Visit REGIONAL 4.2.7.2.686 Rex as MATERNAL [phone] [facility] [address] [place] [address] 2018-11-19 2018-11-19 Orders Doctor MAGGIE 1.2.840.114 [id number] Univers 00:00:00 00:00:00 Only Unassigned, HÉCTOR 350.1.13.10 ity of [place] [facility] 4.2.7.2.686 Rex as [phone] [facility] [address] [place] 2018-11-05 2018-11-05 Routine Faculty, [facility] 1.2 .840.114 [id number] Univers 11:02:19 11:44:41 Allison Whitaker Cassie SOAP CHIPPER 350.1.13.10 ity of Visit REGIONAL 4.2.7.2.686 Rex as MATERNAL [phone] [facility] & [address] 2018-11-05 2018-11-05 Orders Doctor MAGGIE 1.2.840.114 [id number] Univers 00:00:00 00:00:00 Only Unassigned, HÉCTOR 350.1.13.10 ity of [place] [facility] 4.2.7.2.686 Rex as [phone] [facility] [address] [place] 2018-11-01 2018-11-01 Telephone LAQUITA Sanchez 1.2.840.114 [id number] Univers 00:00:00 00:00:00 [place] HEALTH 350.1.13.10 ity of CLINICS [place]2.[place] [phone] [facility] [address] 2018-10-24 2018-10-24 Patient Doctor MAGGIE 1.2.840.114 [id number] Univers 00:00:00 00:00:00 Secure Msg Unassigned, HÉCTOR 350.1.13.10 ity of [place] [facility] 4.2.7.2.686 Rex as [phone] [address] 2018-10-07 2018-10-07 Patient Doctor MAGGIE Blake.2.840.114 [id number] Univers 00:00:00 00:00:00 Secure Msg Unassigned, HÉCTOR 350.1.13.10 ity of [place] [facility] 4.2.7.2.686 Rex as [phone] [address] 2018-09-27 2018-09-27 Patient Doctor MAGGIE Blake.2.840.114 [id number] Univers 00:00:00 00:00:00 Secure Msg Unassigned, HÉCTOR 350.1.13.10 ity of [place] [facility] 4.2.7.2.686 Rex as [phone] [address] Results Test Description Test Time Test Comments Results Result Comments Source SURGICAL PATHOLOGY EXAM 2018-11-21 18:37:00 Test Item Value Reference Range Interpretation Comme nts Case Report (test code = Surgical Pathology?Case: [id number]? Author donald [id number]) Provider:?Yahir Nobles MD?Collected:? 11/19/2018 1743?Ordering Location:? Labor and Delivery ([facility])?Received:?11/20/2018 0850?Pathologist:? Yuval Gu MD?Specimens:? A) - FALLOPIAN TUBE, RIGHT? ? B) - FALLOPIAN TUBE, LEFT? Final Diagnosis (test code = x8nyiBHxFRTnw2rrIGHdoXAtRsTgGpJzVaIjWr pcdWMxIHt [id number]) lxzPwELetg9EyE4UiWbJdCEcjotXmKHUhYspdxtpiGUIkHJ M2fzKrAAKkDDnsWNAiXKizDb0duIMeuUpdSuHvQHAso0kwi lMUspotnSl3m8srJDDwHrW3jWJzEAusN6zmwsBmyVBdIGUn RKn5fW06MNGorE5jfHOkBEbyyzZcOPbfneCqdkOwRzt3FDH aE5mnWMApXOKyL7NyCG1aZNGnRvf6OMM5BBI2vUhfb6L1aU HroVHktXvqOoUlEvEoZZWLe2FmONt4jLsmW9RpOXNgRdH5z SNuJQFuIGqnWECxEFUxiuP4xP17CBkcpjV1aQOup3Uxg79f t314lV9nbQJgXTI7DWWyYIUzwZCaTRAdBUZ1WXIflOYqO4v rSCdkJK6pzhzwBED4JFipXFWnpXwyGLsoZMPoWjZrzWNgDI CceXkuCRkmc949MVT3CgIzDT6eR6Sxn1H1hV9xfBGaRUHtx YPpRfHgMZZaxx0jdESgYFzgg5DzPUT8mqJ8mSKufPRfGKHl TF31Vdtck1WcUgtqSSK5UYFxknLjo8Myw6jvHcAqofDbL4g wH9StXCLeNCZlDCIwBqFvqwWxh3Oez1EacUGwuVn0s1yzUG LaNRNbyKfnv4tgNFB4LNNpY9B4nMGrd1urAYlmLMMknBN0f lJzBREnnWTlK9AlbG9jBNdxEP1czyl8m5lgIdWuYF8gungl p7hjKZoeDQEiFSX2YlOhUOCrw7FxwocaOcNqd0BuoPXgEHx nU31iw686TXChfnHlL0atkGCilzpbrUGnyfqdCCehtqEeEV NdPSMrNExbSBMfIJJoVvDvdHugdH4zVeQuOySwKFypZWFni RrpgG1yRuViZxZwECEENlVHZAqCN3KRGA9cAVBXJAmsSiuS KLDdPRROT59EWuAZUGNALGXRI9LGA169RSFcfwVrLVKmMYU TAExkM0ECN6FnG5ZYGTnVWgFOHlPZMAqKN5FMVU9tAUKORE EZEHWDBDkZVLXVPIPyljgfXVVpXi1vKkPBBS8IKDAPUKADX aChDKtJKgFyZTOQE38TBeFYYDNHXXZJT5AUX758RBFvssYx CSVwAIVZCTbvG5PFG3CrR4FNSQpLJtFYMkIHCCcNO8GFQW8 gVFVCRSBJREVOVElGSUVEXHBsYWluXGYwXGZzMjBccGFyXH Bkjw84AHE5UfTrz0J9VVMtFeCuLBZpOL3gsDxbGEBeHL3sW BIwD1tcwO3luea3KxZmJKPtPhI1RINicoQ9Dxz4QDSkSIit d8qvb5SpY4HdlZMyqFy2m5vlRZOnNoT8kGDgWGpmW8ggbpN zwYOqMTBzRUp2rOzkCeTtZAWwe8gewpHhAgPyYQBsGQTsBG RxeHkssmh1fI47NEPdpA4mlVNrOBeikmZbPvK1WXwyATGfO cI4VLLqeSInREEaC2xiRQMyICjzCRHrFDkhuQIcQPR9lPzn s5R6dWRfrCHhtHlsReWtKzJtHSQYn9KqFHh5zLveZ5SiGUC kZcF9oXHqKVPwEZspULHnMGWwjgU3xO99HEwvukF6iBOcg8 Ojk59kv590zE0jbXAkICW4MXCcDHUhcALhYRQkLWU4DNSql JIuK5gvKYTsUI7mzyrhXCbsWOtuWTRygEA2DGMxtWMmE0Sc PNHuQZthGJMxczf2RaJzLr8jpXLaoKtlNJvyy8jzl7yvvTJ gEmb7ZBTeJeErWniiBUfrh3Mfj0itLPDter1sOHM5qBVlyT hyq1Y6dKAfQXXwzMYvkoDaRDDgZiN6FVhjGY1kiw97WIDjQ SR8bc2usWNzyLcqtgRnoESpASgtW7GaLFKue693JVQuT4Kd EFUto9K0zzYnFjByBZGgpXR4kmO4WXBcXId9nJOkuqI8elM opFQfD6cjiB2zKSIgEU9dzxijj6tvPEkwPBysQLFlaZT3tz U7JOViwYSiH6QebI7jDNWfSQoaGHAutzu2HtNqKy8kcDIiz TcyMFxzYmtwYWdlXHBnbmNvbnRccGduZGVjXHBsYWluXHBs WUuuGCPfAVRvDjWkgYttdTtdvS0nUvPxCmZdVElxLS7xORD hK5qzkYWpFSUhFAMyU3saVhMohI5xbSpmFCcrQySeYlMxHI hzIXVvXJBgVSMdFJXxqiRwdnXgtBtvnjD6jGB1KMUyGHzwK ZFeUNEtvSKeym5snOnaEVQnPI5yKNFdlaSaLCmjwGamENcs OVF5SXGohPStgDMyyOPlJFHswVBnMWKqLOPdiKDnIMOzwEq xb4Tlu7WpfCI1iS0wn0blr6YzJCTfxGT9BL46xyA8lO3vOG EsUV4gARSwIY3ieZVdwUSqVEMwq19rsHsvudVlIERivnVrA HBsYWluXGYyXGZzMjhcbGFuZzEwMzNcaGljaFxmMlxkYmNo WRFkAEpdY2sfIvDdAqFsYKbfEIX8jP== Clinical Information (test code 36wks s/p repeat , ce rclage = [id number]) removal, & BTL Gross Description (test code = w2eooYEqNGVyaLQaCbPlRKLlPXTdv8jfZ GVmbGFuZzEwMzN [id number]) wZmRcFojvgMSbAMKcXfCzo7kul094kFDqn4eoCQNbGfB3mX AqSMMgcSIhY982IIHcUUcpr2ztm6EkCYMpnIVyq3S2WQATc ewpoFf2v2upZwSzUxA6oMJtSQzzY8qsqgCuxRJzNILbL2Dz knCSJLIgKrn5gTjpR07wg1E6HvaoM6zjZLLhXPvvAYQbCXx pfMImSHJ0PKQfFFD2MWpgmpEnjcR3FDauzJKcDkR5IOn0n1 vazTwuKKHxALC3b0quKTjplgOaDW7dhs0jeOj2f6zxmwAkV BYiVMJktDFXJWYnB2DphUslKx5mgAt0bWfxTrbqTOL6Gxo3 UJ7fbl42ink4lGqsBYWknixrTfO0PHjlPTYfsifpXHl5YUx wVUOjyWVnZPPifLOlY4RfQPtfYX5tvjv1GuLlCL4emtxpLD ghTSWkGNZ1BhViEQGhd5TsgumpXnJloj0lni58XSI4m3Ntw VcyTAH8MTU1KoVsMm3gdPJwVNRcAK9zEbHwpSBrLBNxdq05 lDndQWruosBroJ2hMlGgVNHjmGUgAVJlBP7poYZoWAUwnT4 qvbxaYRFoRhCfkezzGQCmrCeasuQqDp2lyXtnUEQ5WCqrJ1 pgeD6wIiY7KBmhS4onxU8fNXd3LQrlrWA7HQSdbY2kKJ0ww dagi1hiEQA6SSqrODHcidD2kjSbSUAtcDFvK6JjqM80VnRd xWQnE7SseB4fLBvjNUEixum9HtBuZf8ckMEysGA3GJrzLwz wYWdlXHBnbmNvbnRccGduZGVjXHBsYWluXHBsYWluXGYwXG DqXMVhcUXjEXbirGTphsnxNGuqdzV4LJPyGSasHSWaQMGtI kNjpTYmPgYlBaCusBandEzkBFnmYvFwFYBjXFbtJ4aeOsWy QcHhESYOdXZzdL2nhyCOWYvfYRTkT6WkvhJpXLvjCIAplb2 eoBhiCXqbUiYtAVDef7r2qAM5kJQobZO8kPRnpWjcBD7vdP FrNDBZLZ28mNUnarhjXjFwqQovxXywbbU2vQPvIGCjjGkkl RXyTN2gUTMkkqWkn7RrLJ9lVELdh1moH4juGIKlsk1ooW5v GDDuM97sobIly9GbJuOapA9uaGGeXFC5SbQpOXHnGYQcdEO mrtQnUT2xfAhlNJ2nNKJeAvZmfFDzkxNafNBvYLQfpdxbg1 ehP5nkgZGds2UwqEJzeXpzi9XsaKzzxdPnZPXmOUBkcyNue ON4YJ0lkHnhssunI4Fqg0DogKC6xtQjpCQdx6SbsVLuO6A3 WPL4ppKkR3QdGfNyPsSazaGgWL04DXRikxJcm2QzcZfjiqI gZWTuHIQ2Ox8biEDlGEXvbuICFK0yjWChTTKxssMZaEBbqU 4utzXSIIwlDHDdL9XqtaFuLHkgREKtjd9ncNxxGOrlOlWjF SNky6x8lVJ6qJNxzEU1uVAngMpaMR3mfPQpSDSBPY87kFYs ucbiFfFmiYedyPutflD4iQNjBKFtATM4RaEvyjMeW72fn1r ubXAba9FcPPAauE5eiGXmgCJoQNLunuopp4NmdOXvsSNoQj YqXLdwq4EaCV6drMPbPZAiYE02TBYzGQxsYTglknq8sSXlt yIcEO72ZSBlNYgrGJNwMZ9uqDUhCAB9eWjnuBVlpgNelPEc P8BfLTL5oiHsWYIcEAkmcNAfVFZtbaafPWisv2NwqQtksC6 xEJ3phgkuNlciWHD6gPTnpTBtPZLcug6jCGAsuTvkBMp2HC R2Hr6tvJLsSUZgdxMONQ6gwOBhWECxtfZWXA0zlzPDOcPVg 2ssGZBLOFEcTALXTAncsVnfeB3vSeJrYxHvOVpaFB6eHJCr V2einZPiLPYdKUXhD3fvAtGxcB5yeKfbMYcnUmOfWpGgKFk fkZEnpvOzzFqxtTFjjouxKarmplB6KYggigjeOCJjRFmhV7 doNgLiVHGqtHlkTcahh0UuKHMsKEVhPRdxooK4WXGdbjpdy BysuVZsrgjlOEekmpZ8LOJyGZeyJKOyRKKtIjAxnXDlJyYp EmQihCsykEpvOSzqLzVyNQTxYAevG8hxPsYjTjJjYNxfSOV 9 Embedded Images (test code = 2318066651) [facility] ONLY - SYPHILIS [id number] 14:15:00 Test Item Value Reference Range Interpretation Comments Syphilis IgG/IgM (test Non-reactive Non-reactive code = 59295-8) LOS (test code = LOS) Non-reactive - No serologic evidence of T. pallidum infection. Cannot exclude incubating or early syphilis. Submit a second specimen in 2-4 weeks if syphilis is clinically suspected.Equivocal - Further testing to follow.Reactive - Further testing to follow. Lab Interpretation (test Normal code = 93371-3) [facility] WITH [id number] 07:56:00 Test Item Value Reference Range Interpretation Comments WBC (test code = See_Comment [Automated 6690-2) message] The sy stem which generated this result transmitted reference range : 4.30 - 11.10 10*3/?L. The reference range was not used to interpret this result as normal/abnormal . RBC (test code = See_Comment L [Automated 789-8) message] The sy stem which generated this result transmitted reference range : 3.93 - 5.25 10*6/?L. The reference range was not used to interpret this result as normal/abnormal . HGB (test code = 9.8 g/dL 11.6-15 L 718-7) HCT (test code = 31.5 % 35.7-45.2 L 4544-3) MCV (test code = 82.9 fL 80.6-95.5 787-2) MCH (test code = 25.8 pg 25.9-32.8 L 785-6) MCHC (test code = 31.1 g/dL 31.6-35.1 L 786-4) RDW-SD (test code = 39.8 fL 39-49.9 27849-3) RDW-CV (test code = 13.2 % 12-15.5 788-0) PLT (test code = See_Comment [Automated 777-3) message] The sy stem which generated this result transmitted reference range : 166 - 358 10*3/ ?L. The reference r connie was not used to interpret this result as normal/abnormal . MPV (test code = 11.1 fL 9.5-12.9 32981-8) NRBC/100 WBC (test See_Comment [Automat ed code = 9416901675) message] The system which generated this result transmitted reference range : 0.0 - 10.0 /100 WBCs. The refer ence range was not u sed to interpret th is result as normal/abnormal . NRBC x10^3 (test code <0.01 See_Comment [Auto mated = 0181020266) message] The s ystem which generated this result transmitted reference range : 10*3/?L. The reference range was not used to interpret this result as normal/abnormal . GRAN MAT (NEUT) % 76.8 % (test code = 770-8) IMM GRAN % (test code 0.60 % = 7187265597) LYMPH % (test code = 16.7 % 736-9) MONO % (test code = 5.1 % 5905-5) EOS % (test code = 0.5 % 713-8) BASO % (test code = 0.3 % 706-2) GRAN MAT x10^3(ANC) 8.48 10*3/uL 1.88-7.09 H (test code = 5904767363) IMM GRAN x10^3 (test 0.07 10*3/uL 0-0.06 H code = 4063153212) LYMPH x10^3 (test code 1.84 10*3/uL 1.32-3.29 = 731-0) MONO x10^3 (test code 0.56 10*3/uL 0.33-0.92 = 742-7) EOS x10^3 (test code = 0.05 10*3/uL 0.03-0.39 711-2) BASO x10^3 (test code 0.03 10*3/uL 0.01-0.07 = 704-7) Lab Interpretation Abnormal (test code = 61759-1) [facility] Surface [id number] 23:01:00 Test Item Value Reference Range Interpretation Comments HBsAg Semi-Quantitative (test code = 5195-3) [facility] Cord [id number] 22:50:00 Test Item Value Reference Range Interpretation Comments VENOUS BASE EXCESS, mEq/L CORD (test code = 3116006928) VENOUS PH, CORD (test 7.25-7.45 code = 0699927313) VENOUS PC02, CORD See_Comment [Automate d message] The (test code = system which ge nerated 6405242178) this result tra nsmitted reference range : 27 - 49 mmHg. The refer ence range was not used to interpret this result as normal/abnormal . VENOUS PO2, CORD (test See_Comment [Aut omated message] The code = 9697918192) system wh ich generated this result tra nsmitted reference range : 17 - 41 mmHg. The refer ence range was not used to interpret this result as normal/abnormal . VENOUS BICARBONATE, See_Comment [Automa nader message] The CORD (test code = system whi ch generated 2679670739) this result tra nsmitted reference range : 12 - 29 mEq/L. The refe rence range was not used to interpret this result as normal/abnormal . [facility] Center[facility] and Screen - ONCE [id number] 22:31:28 Test Item Value Reference Range Interpretation Comments ABO & RH (test code O POSITIVE Performe d at [facility] = 20) Laboratory [facility] [address] [facility] [id number] Free: [phone] A No. [id number] IAT (test code = Negative Performed a t [facility] 1185) Laboratory [facility] [address] [facility] s [address]Dqqq Free: [phone] A No. [id number] [facility] CenterFETAL NON-STRESS [id number] 19:59:37 Reactive but patient with contractions and lots of irritability. [facility]
[2022-10-05] MEDS ORDERED: FAMOTIDINE 20 MG/2 ML VIAL IV ONE (03:47)
[2022-10-05] MEDS ORDERED: MORPHINE 4 MG/ML SYR ONE (03:47)
[2022-10-05] MEDS ORDERED: ONDANSETRON 4 MG/2 ML VIAL ONE (03:47)
[2022-10-05] MEDS ORDERED: NA CHLORIDE 0.9% 1,000 ML ONE (03:47)
[2022-10-05] MEDS ORDERED: KETOROLAC 30 MG/ML INJ ONE (03:47)
[2022-10-05 03:59] LABS: Absolute Lymphocytes (CBC) 0.7 K/uL (0.7-4.9); Hematocrit 35.9 % (36.0-45.0); Lymphocytes % 6.9 % (15.3-44.8); MCV 86.3 fL (80-100); MPV 8.9 fL (7.6-11.3); RBC Red Blood Cell Count 4.16 M/uL (3.86-4.86)
[2022-10-05 04:50] LABS: Specific Gravity 1.024 (1.005-1.030)
[2022-10-05 04:58] LABS: Specific Gravity 1.024 (1.005-1.030); Urine Bacteria None Seen /HPF (<20); Urine Bilirubin NEGATIVE (Negative); Urine Blood 3+ (Negative); Urine Clarity Clear (Clear); Urine Color Light-Yellow (Yellow); Urine Glucose NEGATIVE (Negative); Urine Mucus Slight /HPF (None Seen); Urine Protein NEGATIVE (Negative); Urine Urobilinogen Normal (Normal); Urine pH 5.5 (5.0-7.0)
[2022-10-05 05:07] LABS: Blood Morphology Comment NOT SEEN (NOT SEEN); Platelet Estimate ADEQ
[2022-10-05 05:10] LABS: Albumin 3.3 g/dL (3.4-5.0); Bilirubin Total 0.3 mg/dL (0.2-1.0); Potassium 4.1 mEq/L (3.5-5.1); Protein, Total 6.8 g/dL (6.4-8.2)
--- NOTE | 2022-10-05 05:58 | ER ---
Nurse's Notes [facility] Name: Catie Barrera Age: 32 yrs Sex: Female : 1990 Arrival Date: 10/05/2022 Time: 02:19 Bed 20 Private MD: Diagnosis: Diarrhea, unspecified;Other specified noninfective gastroenteritis and colitis Presentation: 10/05 02:27 Chief complaint: Patient states: C/o abdominal pain radiating to back. Started like 2 kl hrs ago. Patient states was asleep and pain work her up. Coronavirus screen: Vaccine status: Patient reports being unvaccinated. Ebola Screen: Patient negative for fever greater than or equal to 101.5 degrees Fahrenheit, and additional compatible Ebola Virus Disease symptoms. Initial Sepsis Screen: Does the patient meet any 2 criteria? No. Patient's initial sepsis screen is negative. Risk Assessment: Do you want to hurt yourself or someone else? Patient reports no desire to harm self or others. Onset of symptoms was October 05, 2022. 02:27 Method Of Arrival: Wheelchair kl 02:27 Acuity: [place] 4 kl 04:55 Initial Sepsis Screen: Does the patient have a suspected source of infection? No. as6 Patient's initial sepsis screen is negative. Historical: - Allergies: 04:14 NKA; as6 - PMHx: 04:14 Asthma; as6 - Immunization history:: Adult Immunizations up to date. - Social history:: Smoking status: Patient denies any tobacco usage or history of. - Family history:: not pertinent. Screenin:55 [facility] ED Fall Risk Assessment (Adult) Score/Fall Risk Level 0 - 2 = Low Risk. Abuse as6 screen: Denies threats or abuse. Denies injuries from another. Nutritional screening: No deficits noted. Tuberculosis screening: No symptoms or risk factors identified. Assessment: 02:50 General: Appears uncomfortable, Behavior is calm, cooperative. Pain: Complains of pain as6 in abdomen Pain radiates to back. Neuro: Level of Consciousness is awake, alert, obeys commands, Oriented to person, place, time, situation. Cardiovascular: No deficits noted. Respiratory: No deficits noted. GI: Reports upper abdominal pain, nausea. : No deficits noted. No signs and/or symptoms were reported regarding the genitourinary system. EENT: No deficits noted. No signs and/or symptoms were reported regarding the EENT system. Derm: Skin is intact, is healthy with good turgor. 06:07 Reassessment: Patient states feeling better. Patient states symptoms have improved. as6 Vital Signs: 02:27 BP 108 / 75; Pulse 69; Resp 12; Temp 97.4; Pulse Ox 100% ; Weight 56.7 kg; Height 5 ft. kl 6 in. ; Pain 8/10; 04:56 BP 110 / 70; Pulse 67; Resp 18 S; Pulse Ox 100% on R/A; as6 06:02 BP 103 / 70; Pulse 65; Resp 18 S; Pulse Ox 100% on R/A; as6 02:27 Body Mass Index 20.18 (56.70 kg, 167.64 cm) kl 02:27 Pain Scale: Adult kl ED Course: 02:23 Patient arrived in ED. ja2 02:30 Triage completed. kl 02:54 Walt Lindsey MD is Attending Physician. sp4 03:02 Radiology exam delayed due to lab results not completed at this time. (BUN/Creatinine) eh4 test not completed at this time. IV insertion attempt and/or patient not having appropriate IV at this time. 03:04 Abel Hernández, RN is Primary Nurse. as6 03:47 Abdomen Limited US In Process Unspecified. EDMS 04:14 Arm band placed on. as6 04:56 Bed in low position. Call light in reach. Side rails up X 1. as6 05:15 CT Abd/Pelvis - Without Contrast In Process Unspecified. EDMS 06:03 No provider procedures requiring assistance completed. as6 06:07 Patient did not have IV access during this emergency room visit. as6 Administered Medications: 04:53 Discontinued: NS 0.9% IV 1000 ml IV at 1 bolus Per protocol; 1000 mL bolus as6 04:40 Drug: NS 0.9% IV 1000 ml Route: IV; Rate: 1 bolus; Site: left antecubital; as6 06:08 Follow up: Response: No adverse reaction; IV Status: Order to discontinue infusion; IV as6 Intake: 25ml 04:40 Drug: TORadol - Ketorolac IVP 15 mg Route: IVP; Site: left antecubital; as6 06:08 Follow up: Response: No adverse reaction as6 04:40 Drug: Ondansetron IVP 4 mg Route: IVP; Site: left antecubital; as6 06:08 Follow up: Response: No adverse reaction as6 04:51 Not Given (Other Intervention Used): Famotidine IVP 20 mg IVP once; dilute with 10 mL as6 0.9% NaCl; give over 2 minutes 04:51 Drug: morphine IM 4 mg Route: IM; Site: right deltoid; as6 06:07 Follow up: Response: No adverse reaction as6 04:52 Not Given (Other Intervention Used): morphine IVP or IV 4 mg IVP once over 4 mins as6 Medication: 04:56 VIS not applicable for this client. as6 Intake: 06:08 IV: 25ml; Total: 25ml. as6 Outcome: 05:57 Discharge ordered by . sp4 06:07 Discharged to home ambulatory. as6 06:07 Condition: stable 06:07 Discharge instructions given to patient, Instructed on discharge instructions, follow up and referral plans. medication usage, Demonstrated understanding of instructions, follow-up care, medications, Prescriptions given X 4. 06:07 Patient left the ED. as6 Signatures: Dispatcher [employer] Ainsley Solis RN RN kl Alexander, Jessica ja2 Slawson, Ashby, RN RN as6 Facundo Wisdom [facility] Walt Lindsey MD MD sp4
--- NOTE | 2022-10-05 05:58 | EDPHYS ---
Physician Documentation [facility] Name: Catie Barrera Age: 32 yrs Sex: Female : 1990 Arrival Date: 10/05/2022 Time: 02:19 Bed 20 Private MD: ED Physician Walt Lindsey HPI: 10/05 02:54 This 32 yrs old Female presents to ER via Wheelchair with complaints of Back sp4 Pain, Flank Pain. 05:43 Patient presents secondary to acute right-sided pain in abdomen and flank starting at 1 sp4 AM today associated with nausea. Last menstrual period started 2 days ago, patient has a history of x2 and history of abdominoplasty. She did report 1 episode of diarrhea.. 05:47 Patient denied any history of cholecystectomy or appendectomy.. sp4 Historical: - Allergies: 04:14 NKA; as6 - PMHx: 04:14 Asthma; as6 - Immunization history:: Adult Immunizations up to date. - Social history:: Smoking status: Patient denies any tobacco usage or history of. - Family history:: not pertinent. ROS: 05:47 Constitutional: Negative for fever, chills, and weight loss, Eyes: Negative for injury, sp4 pain, redness, and discharge, ENT: Negative for injury, pain, and discharge, Neck: Negative for injury, pain, and swelling, Cardiovascular: Negative for chest pain, palpitations, and edema, Respiratory: Negative for shortness of breath, cough, wheezing, and pleuritic chest pain, Abdomen/GI: Negative for vomiting, and constipation, positive for right-sided abdominal pain, nausea and diarrhea. Back: Negative for injury and pain, : Negative for injury, bleeding, discharge, and swelling, MS/Extremity: Negative for injury and deformity, Skin: Negative for injury, rash, and discoloration, Neuro: Negative for headache, weakness, numbness, tingling, and seizure, Psych: Negative for depression, anxiety, Allergy/Immunology: Negative for hives, rash, and allergies Endocrine: Negative for neck swelling, polydipsia, polyuria, polyphagia, and weight changes Hematologic/Lymphatic: Negative for swollen nodes, abnormal bleeding, and unusual bruising Exam: 05:47 Constitutional: This is a well developed, well nourished patient who is awake, alert, sp4 and in no acute distress. Head/Face: Normocephalic, atraumatic. Eyes: Pupils equal round and reactive to light, extra-ocular motions intact. Lids and lashes normal. Conjunctiva and sclera are not injected. Cornea within normal limits. Periorbital areas with no swelling, redness, or edema. ENT: Nares patent. No nasal discharge, no septal abnormalities noted. Tympanic membranes are normal and external auditory canals are clear. Oropharynx with no redness, swelling, or masses, exudates, or evidence of obstruction, uvula midline. Mucous membranes moist. Neck: Trachea midline, no thyromegaly or masses palpated, and no cervical lymphadenopathy. Supple, full range of motion without nuchal rigidity, or vertebral point tenderness. Chest/axilla: Normal chest wall appearance and motion. Nontender with no deformity. No lesions are appreciated. Cardiovascular: Regular rate and rhythm with a normal S1 and S2. No gallops, murmurs, or rubs. Normal PMI, no JVD. No pulse deficits. Respiratory: Lungs have equal breath sounds bilaterally, clear to auscultation and percussion. No rales, rhonchi or wheezes noted. No increased work of breathing, no retractions or nasal flaring. Abdomen/GI: Soft, right-sided abdominal tenderness without rebound, no rigidity, no distention, normal active bowel sounds. Scars from prior abdominoplasty. Back: No spinal tenderness. No costovertebral tenderness. Skin: Warm, dry with normal turgor. Normal color with no rashes, no lesions, and no evidence of cellulitis. MS/ Extremity: Pulses equal, no cyanosis. Neurovascular intact. Full, normal range of motion. Neuro: Awake and alert, GCS 15, oriented to person, place, time, and situation. Cranial nerves II-XII grossly intact. Motor strength 5/5 in all extremities. Sensory grossly intact. Psych: Awake, alert, with orientation to person, place and time. Behavior, mood, and affect are within normal limits Vital Signs: 02:27 BP 108 / 75; Pulse 69; Resp 12; Temp 97.4; Pulse Ox 100% ; Weight 56.7 kg; Height 5 ft. kl 6 in. ; Pain 8/10; 04:56 BP 110 / 70; Pulse 67; Resp 18 S; Pulse Ox 100% on R/A; as6 06:02 BP 103 / 70; Pulse 65; Resp 18 S; Pulse Ox 100% on R/A; as6 02:27 Body Mass Index 20.18 (56.70 kg, 167.64 cm) kl 02:27 Pain Scale: Adult kl MDM: 03:00 Patient medically screened. sp4 05:41 ED course: CT abdomen / pelvis - EXAM: CTAbdomen and Pelvis Without Intravenous sp4 Contrast CLINICAL HISTORY: The patient is 32 years old and is Female; ABD AND BACK PAIN TECHNIQUE: Axial computed tomography images of the abdomen and pelvis without intravenous contrast. Sagittal and coronal reformatted images were created and reviewed. This CT exam was performed using one or more of the following dose reduction techniques: automated exposure control, adjustment of the mA and/or kV according to patient size, and/or use of iterative reconstruction technique. COMPARISON: No relevant prior studies available. FINDINGS: Lung bases: Unremarkable. No mass. No consolidation. ABDOMEN: Liver: Unremarkable. Gallbladder and bile ducts: Unremarkable. No calcified stones. No ductal dilation. Pancreas: Unremarkable. No ductal dilation. Spleen: Unremarkable. No splenomegaly. Adrenals: Unremarkable. No mass. Kidneys and ureters: No nephrolithiasis, hydronephrosis or ureter stone. Stomach and bowel: No bowel dilatation or obstruction. No bowel wall thickening. PELVIS: Appendix: The visualized appendix is normal. No pericecal inflammation to suggest acute appendicitis. Bladder: Unremarkable. No stones. Reproductive: Unremarkable as visualized. ABDOMEN and PELVIS: Intraperitoneal space: Unremarkable. No free air. No significant fluid collection. Bones/joints: No acute fracture visualized. No dislocation. Soft tissues: Unremarkable. Vasculature: Unremarkable. No abdominal aortic aneurysm. Lymph nodes: No pathologically enlarged lymph nodes. IMPRESSION: No nephrolithiasis, hydronephrosis or ureter stone.. 05:42 ED course: CLINICAL HISTORY: ABD PAIN COMPARISON: None. TECHNIQUE: US ABDOMEN LIMITED sp4 10/05/2022 2:59 AM CDT FINDINGS: Liver is normal in echotexture. Common bile duct measures 3 mm. Gallbladder is normally distended without wall thickening, gallstones or pericholecystic fluid. IMPRESSION: No acute findings. Electronically signed by: Dominic De La Rosa MD 10/05/2022. 05:47 Differential diagnosis: Fatigue Joint Injury Peptic Ulcer Scoliosis. sp4 05:54 Data reviewed: vital signs, nurses notes, old medical records, lab test result(s), CBC, sp4 electrolytes, hepatic panel, urinalysis, UPT: radiologic studies, CT scan, ultrasound. Consideration of Admission/Observation Escalation of care including admission/observation considered. ED course: Labs today basically unremarkable.. 05:55 ED course: Acute abdominal pelvic emergencies were ruled out with right upper quadrant sp4 ultrasound and a CAT scan abdomen pelvis. Patient is stable for discharge home with as needed medications for abdominal pain nausea and diarrhea.. 10/05 02:59 Order name: CBC with Diff; Complete Time: 05:22 sp4 10/05 02:59 Order name: CMP; Complete Time: 05:22 sp4 10/05 02:59 Order name: Lipase; Complete Time: 05:22 sp4 10/05 02:59 Order name: Test, Urine; Complete Time: 05:22 sp4 10/05 02:59 Order name: Urinalysis w/ reflexes; Complete Time: 05:22 sp4 10/05 04:12 Order name: Manual Differential; Complete Time: 05:22 EDMS 10/05 02:59 Order name: Abdomen Limited US sp4 10/05 04:47 Order name: CT Abd/Pelvis - Without Contrast sp4 10/05 02:59 Order name: Labs collected and sent; Complete Time: 04:51 sp4 10/05 04:24 Order name: Misc. Order: RECOLLECT GREEN TOP; Complete Time: 04:51 [email or web address] Administered Medications: 04:53 Discontinued: NS 0.9% IV 1000 ml IV at 1 bolus Per protocol; 1000 mL bolus as6 04:40 Drug: NS 0.9% IV 1000 ml Route: IV; Rate: 1 bolus; Site: left antecubital; as6 06:08 Follow up: Response: No adverse reaction; IV Status: Order to discontinue infusion; IV as6 Intake: 25ml 04:40 Drug: TORadol - Ketorolac IVP 15 mg Route: IVP; Site: left antecubital; as6 06:08 Follow up: Response: No adverse reaction as6 04:40 Drug: Ondansetron IVP 4 mg Route: IVP; Site: left antecubital; as6 06:08 Follow up: Response: No adverse reaction as6 04:51 Not Given (Other Intervention Used): Famotidine IVP 20 mg IVP once; dilute with 10 mL as6 0.9% NaCl; give over 2 minutes 04:51 Drug: morphine IM 4 mg Route: IM; Site: right deltoid; as6 06:07 Follow up: Response: No adverse reaction as6 04:52 Not Given (Other Intervention Used): morphine IVP or IV 4 mg IVP once over 4 mins as6 Disposition Summary: 10/05/22 05:57 Discharge Ordered Location: Home sp4 Problem: new sp4 Symptoms: have improved sp4 Condition: Stable sp4 Diagnosis - Diarrhea, unspecified sp4 - Other specified noninfective gastroenteritis and colitis sp4 Followup: sp4 - With: Private Physician - When: 5 - 6 days - Reason: Recheck today's complaints Discharge Instructions: - Discharge Summary Sheet sp4 - Viral Gastroenteritis, Adult, [id number] sp4 Forms: - [email or web address] sp4 Prescriptions: - Ibuprofen 600 mg Oral Tablet - take 1 tablet by ORAL route every 6 hours As needed PRN pain; 30 tablet; sp4 Refills: 0, Product Selection Permitted - Pepcid 20 mg Oral Tablet - take 1 tablet by ORAL route every 12 hours for 5 days; 10 tablet; Refills: 0, sp4 Product Selection Permitted - Zofran 4 mg Oral Tablet - take 1 tablet by ORAL route every 6 hours As needed PRN pain; 30 tablet; sp4 Refills: 0, Product Selection Permitted - Levsin 0.125 mg Oral Tablet - take 1 tablet by ORAL route every 6 hours PRN abdominal pain; 30 tablet; sp4 Refills: 0, Product Selection Permitted Signatures: Dispatcher [facility] Abel Ingram, RN RN as6 Atiya Aj [email or web address] Walt Lindsey MD MD sp4 Corrections: (The following items were deleted from the chart) 04:55 03:00 Abdomen Pelvis W [email or web address] ordered. EDKS EDMS 06:02 02:59 IV Saline Lock ordered. sp4 as6
[2022-10-05 06:12] VITALS: TEMP 97.4; O2SAT 100
[2022-10-05 06:16] VITALS: BP 103/70
--- NOTE | 2022-10-05 12:17 | RAD REPORT ---
EXAM DESCRIPTION: CT Abdomen and Pelvis Without Intravenous Contrast CLINICAL HISTORY: The patient is 32 years old and is Female; ABD AND BACK PAIN TECHNIQUE: Axial computed tomography images of the abdomen and pelvis without intravenous contrast. Sagittal and coronal reformatted images were created and reviewed. This CT exam was performed usi ng one or more of the following dose reduction techniques: automated exposure control, adjustment o f the mA and/or kV according to patient size, and/or use of iterative reconstruction technique. COMPARISON: No relevant prior studies available. FINDINGS: Lung bases: Unremarkable. No mass. No consolidation. ABDOMEN: Liver: Unremarkable. Gallbladder and bile ducts: Unremarkable. No calcified stones. No ductal dilation. Pancreas: Unremarkable. No ductal dilation. Spleen: Unremarkable. No splenomegaly. Adrenals: Unremarkable. No mass. Kidneys and ureters: No nephrolithiasis, hydronephrosis or ureter stone. Stomach and bowel: No bowel dilatation or obstruction. No bowel wall thickening. PELVIS: Appendix: The visualized appendix is normal. No pericecal inflammation to suggest acute appendici tis. Bladder: Unremarkable. No stones. Reproductive: Unremarkable as visualized. ABDOMEN and PELVIS: Intraperitoneal space: Unremarkable. No free air. No significant fluid collection. Bones/joints: No acute fracture visualized. No dislocation. Soft tissues: Unremarkable. Vasculature: Unremarkable. No abdominal aortic aneurysm. Lymph nodes: No pathologically enlarged lymph nodes. IMPRESSION: No nephrolithiasis, hydronephrosis or ureter stone. Electronically signed by: Sarah Dixon MD 10/05/2022 5:33 AM CDT Due to temporary technical issues with the PACS/Fluency reporting system, reports are being signed by the in house radiologists without review as a courtesy to insure prompt reporting. The interpreting radiologist is fully responsible for the content of the report.
--- NOTE | 2022-10-05 12:19 | RAD REPORT ---
EXAM DESCRIPTION: US ABDOMEN LIMITED CLINICAL HISTORY: ABD PAIN COMPARISON: None. TECHNIQUE: US ABDOMEN LIMITED 10/05/2022 2:59 AM CDT FINDINGS: Liver is normal in echotexture. Common bile duct measures 3 mm. Gallbladder is normally di stended without wall thickening, gallstones or pericholecystic fluid. IMPRESSION: No acute findings. Electronically signed by: Dominic De La Rosa MD 10/05/2022 4:16 AM CDT Due to temporary technical issues with the PACS/Fluency reporting system, reports are being signed by the in house radiologists without review as a courtesy to insure prompt reporting. The interpreting radiologist is fully responsible for the content of the report.
== END 2022-10-05 06:07 | disposition home or self-care (01) ==
LOC: ER 02:19
DX: K52.89 Other specified noninfective gastroenteritis and colitis (principal)
CPT/HCPCS: 96361; 85025; 81001; 36415; 81025; 83690; 80053; 74176; 76705; 96375; 96372; 96374; 99284; J2405; J7030